=== PATIENT | male | born 1950 | race Caucasian/White ===

== ENCOUNTER → 2016-11-17 | Outpatient (CLI) | payer MEDICARE, OTHER ==
[~2016-11-17] MED LIST: ALBU17IN INH; FURO20TA2 PO; HYDR200T3 PO; KEPP1TAB2 PO; LACT10SO29 PO; LEVO88TA3 PO; NADO20TA PO; PANT40TA2 PO; PRED5TA PO; SIME80TA PO; SPIR50TA2 PO; VITA400T PO; XIFA550T PO
--- NOTE | 2016-11-17 16:52 | REP ---
MRI study of the abdomen without and with IV contrast: History: Hepatic failure. History of cirrhosis. Follow-up MRI study March 31, 2016. Prior studies show multiple pancreatic head and tail region cysts along with the evidence of cirrhosis and ascites. Technique: Axial and coronal imaging planes are utilized. T1 and T2-weighted sequences include true FISP, spin echo, in and out of phase, 2D gradient echo fat sat post gadolinium enhanced images. MRI findings: There is moderate upper abdominal diffuse ascites. The right hepatic lobe is diminutive and the left is relatively larger. The liver contour is finely irregular as before consistent with cirrhosis. Remains mildly enlarged, unchanged. No focal hepatic mass lesion is seen. There is a 16 mm cystic area in the pancreatic tail with some adjacent smaller tiny acinar cysts. There are one or two similar tiny cysts in the head and body of the pancreas, which are unchanged. No abnormal contrast enhancement in any of these small pancreatic cysts. Delayed patchy enhancement of the liver parenchyma is seen with numerous tiny low T1, low T2 signal intensity micronodules throughout the liver. This is again felt to be consistent with regenerative liver nodularity. No hypermetabolic lesion is seen in the liver. Impression: Evidence of cirrhosis with moderate ascites. Mild splenomegaly. No focal liver lesion seen. Multiple stable small cystic areas in the pancreas. Signed by Ap Deutsch MD 11/18/2016 05:06 P
== END ==
LOC: M PLARAD 13:15
PROVIDERS: ATTEND Internal Medicine Gastroenterology
DX: K72.90 Hepatic failure, unspecified without coma (principal); K76.0 Fatty (change of) liver, not elsewhere classified; I95.89 Other hypotension; K74.60 Unspecified cirrhosis of liver; R18.8 Other ascites; R16.1 Splenomegaly, not elsewhere classified; K86.2 Cyst of pancreas
CPT/HCPCS: 74183; A9576

== ENCOUNTER → 2016-11-21 | Outpatient (REF) | payer MEDICARE, OTHER ==
[2016-11-21 20:55] LABS: ADD MORPHOLOGY? YES; BASO # 0.1 K/mm3 (0.0-0.2); BASO % 1.3 % (0.0-1.0); EOS # 0.3 K/mm3 (0.0-0.50); EOS % 3.9 % (0.0-3.0); LARGE UNSTAINED CELL # 0.2 K/mm3 (0.0-0.4); LARGE UNSTAINED CELL % 2.2 % (0.0-4.0); LYMPH % 26.8 % (24.0-44.0); MEAN CORPUSCULAR HEMOGLOBIN 37.4 pg (27.0-33.0); MEAN CORPUSCULAR HGB CONC 33.4 g/dl (32.0-36.5); MEAN CORPUSCULAR VOLUME 111.9 fl (80.0-96.0); MONO # 0.7 K/mm3 (0.0-0.8); MONO % 10.4 % (0.0-5.0); NEUTROPHILS # 3.9 K/mm3 (1.8-7.7); NEUTROPHILS % 55.5 % (36.0-66.0); PLATELET COUNT, AUTOMATED 102 k/mm3 (150-450); RED CELL DISTRIBUTION WIDTH 14.5 % (11.5-14.5)
[2016-11-21 22:11] LABS: ERYTHROCYTE SEDIMENTATION RATE 32 mm/hr (0-20)
== END ==
LOC: M LAB REF 09:50
PROVIDERS: ATTEND Internal Medicine Rheumatology
DX: M35.9 Systemic involvement of connective tissue, unspecified (principal)

== ENCOUNTER → 2016-11-21 | Outpatient (REF) | payer MEDICARE, OTHER | LOC: M SFHCCLAY 11:15 | PROVIDERS: ATTEND Nurse Practitioner Family | DX: E78.5 Hyperlipidemia, unspecified (principal); E03.9 Hypothyroidism, unspecified; E55.9 Vitamin D deficiency, unspecified ==

== ENCOUNTER → 2016-12-15 | Outpatient (REF) | payer MEDICARE, OTHER ==
[2016-12-15 11:55] LABS: INR 1.5
[2016-12-15 11:57] LABS: MEAN CORPUSCULAR HEMOGLOBIN 37.5 pg (27.0-33.0); MEAN CORPUSCULAR HGB CONC 34.4 g/dl (32.0-36.5); MEAN CORPUSCULAR VOLUME 109.1 fl (80.0-96.0); RED CELL DISTRIBUTION WIDTH 14.3 % (11.5-14.5); WHITE BLOOD COUNT 8.4 K/mm3 (4.0-10.0)
[2016-12-15 12:25] LABS: ANION GAP 8 MEQ/L (8-16); BLOOD UREA NITROGEN 11 MG/DL (7-18); CALCIUM LEVEL 8.2 MG/DL (8.8-10.2); CARBON DIOXIDE LEVEL 22 MEQ/L (21-32); CHLORIDE LEVEL 107 MEQ/L (98-107); CREATININE FOR GFR 0.93 MG/DL (0.70-1.30); GLOMERULAR FILTRATION RATE > 60.0 (>49); GLUCOSE, FASTING 112 MG/DL (80-110); POTASSIUM SERUM 4.2 MEQ/L (3.5-5.1); SODIUM LEVEL 137 MEQ/L (136-145)
== END ==
LOC: M LABDRAWC 11:26
PROVIDERS: ATTEND Dentist
DX: K74.60 Unspecified cirrhosis of liver (principal)

== ENCOUNTER → 2017-04-07 | Outpatient (REF) | payer MEDICARE, OTHER ==
[~2017-04-07] MED LIST changes: +LACT10SO3 PO; +LEVO50TA45 PO; +LEVO75TA4 PO; +MIDO2.5T PO; +OMEP20CA3 PO; +VITA1CAP40 PO; +VITA200016 PO
== END ==
LOC: M SFHCCLAY 11:41
PROVIDERS: ATTEND Nurse Practitioner Family
DX: E03.9 Hypothyroidism, unspecified (principal); K75.4 Autoimmune hepatitis

== ENCOUNTER 2017-04-08 11:29 | Inpatient (IN) | payer MEDICARE, OTHER ==
[~2017-04-08] VITALS: Ht 182.9 cm; Wt 92.8 kg
[~2017-04-08 11:29] MED LIST changes: -LACT10SO3 PO; -LEVO50TA45 PO; -LEVO75TA4 PO; -MIDO2.5T PO; -OMEP20CA3 PO; -VITA1CAP40 PO; -VITA200016 PO
[2017-04-08] MEDS ORDERED: MIDO2.5T PO (11:41)
[2017-04-08] MEDS ORDERED: VITA200016 PO (11:41)
[2017-04-08] MEDS ORDERED: LEVO75TA4 PO (11:41)
[2017-04-08] MEDS: OMEPRAZOLE 20 MG CAP PO SCH (12:00)
[2017-04-08 12:41] LABS: BASO # 0.1 10^3/uL (0.0-0.2); BASO % 1.6 % (0.0-1.0); EOS # 0.2 10^3/uL (0.0-0.50); EOS % 2.5 % (0.0-3.0); IMMATURE GRANULOCYTE % 0.4 % (0-0); LYMPH % 23.5 % (24.0-44.0); MEAN CORPUSCULAR HEMOGLOBIN 37.5 pg (27.0-33.0); MEAN CORPUSCULAR HGB CONC 35.6 g/dl (32.0-36.5); MONO # 1.3 10^3/uL (0.0-0.8); MONO % 14.9 % (0.0-5.0); NEUTROPHILS # 4.9 10^3/uL (1.8-7.7); NEUTROPHILS % 57.1 % (36.0-66.0); PLATELET COUNT, AUTOMATED 113 10^3/uL (150-450); RED CELL DISTRIBUTION WIDTH 15.3 % (11.5-14.5); WHITE BLOOD COUNT 8.5 10^3/uL (4.0-10.0)
[2017-04-08 12:51] LABS: MEAN CORPUSCULAR VOLUME 105.4 fl (80.0-96.0)
[2017-04-08 12:52] LABS: ADD MORPHOLOGY? YES
[2017-04-08 13:08] LABS: ALBUMIN 2.3 GM/DL (3.2-5.2); ALBUMIN/GLOBULIN RATIO 0.59 (1.00-1.93); ALKALINE PHOSPHATASE 152 U/L (45-117); ALT/SGPT 67 U/L (12-78); ANION GAP 9 MEQ/L (8-16); AST/SGOT 65 U/L (15-37); BILIRUBIN,TOTAL 3.1 MG/DL (0.2-1.0); BLOOD UREA NITROGEN 13 MG/DL (7-18); CALCIUM LEVEL 8.5 MG/DL (8.8-10.2); CARBON DIOXIDE LEVEL 22 MEQ/L (21-32); CHLORIDE LEVEL 105 MEQ/L (98-107); CREATININE FOR GFR 0.91 MG/DL (0.70-1.30); GLOMERULAR FILTRATION RATE > 60.0 (>49); GLUCOSE, FASTING 158 MG/DL (80-110); SODIUM LEVEL 136 MEQ/L (136-145); TOTAL PROTEIN 6.2 GM/DL (6.4-8.2)
[2017-04-08 13:29] LABS: ANISOCYTOSIS 1+
--- NOTE | 2017-04-08 15:07 | HPEPDOC ---
[facility] Medical History & Physical Date of Admission Apr 08, 2017 History and Physical ATTENDING: Dr. Gilliam PCP: Alejandra Storm NP Manipulator Operator. Dr Robin Warren Rust Science And Operations Officer Dr Lyons Rust Applications Intern. Dr Espitia CC: confusion and elevated ammonia level. HPI: 66yoM with a past medical history significant for cirrhosis and autoimmune hepatitis. states on/off confusion past 2 weeks and ammonia level was noted to be 246 yesterday when checked by PCP. Reported here for further evaluation. The patient's provides most of the history. The patient is feeling fatigued and weak. She states that he was doing well over the summer until approximately 4 weeks ago when the frequency of his bowel movements decreased and he noticed some gas. They spoke with his percussion instrument repairer and Prilosec was added which was helpful. He was still having constipation and his lactulose was adjusted however he was still experiencing constipation and he was still adjusting lactulose. She states they noticed on March 26 increasing confusion which has been fluctuating since then. He most recently adjusted Lactulose to 10ml QID as per med list but he has still had confusion and weakness. The noted he tripped on a stair leaving the PCP office yesterday. Denies fall or injury. He denies any nausea, vomiting, hematemesis, melena or hematochezia. Denies abdominal pain. Has noticed some mild bloating today. Denies any fevers, chills, PRESLEY, CP, SOB, cough, palpitations, bladder habits. Upon presentation to the hospital the patient was found to have hepatic encephalopathy, thus the hospitalist team was consulted. PMHx: 1. DEGENERATIVE MUSCLE DISEASE 2. HYPOTHYROIDISM 3. AUTOIMMUNE HEPATITIS 4. CIRRHOSIS/hepatic encephalopathy 5. COPD 6. GERD 7. History of hypotension PAST SURGICAL HISTORY: 1. CATARACT SURGERY SOCHX: Resides in: [facility] Marital Status: Kids: 1 Tobacco use: 1/2ppd ETOH: denies Illicit Drugs: Denies Advanced directives: None FAMHX: Mother: Father: Siblings: 3 brothers, 3 sisters Alive, Lupus Children: Alive, well Unexpected deaths due to medical reasons: None. ROS: As noted in HPI, otherwise 11pt ROS of systems reviewed and unremarkable. Patient states he has been compliant with all this medications. PE: GEN: 66 yo M, appears stated age. Ill-appearing. No acute distress. Alert and oriented x 3. Pleasant. HEENT: Normocephalic, atraumatic. Pupils are equal, round, and reactive to light. Extraocular movements are intact. No nystagmus appreciated. Sclera are nonicteric. Conjunctiva without injection. Nose midline. Nasal turbinates without bogginess. EACs both patent BL. TMs both visualized and andrea with good cone of light, no bulging or erythema. No facial asymmetry. Moist mucous membranes. Dentition poor. Pharynx pink and moist, no cobblestoning. Neck supple , trachea midline. No lymphadenopathy or thyromegaly appreciated. CHEST: Regular rate and rhythm, +S1, +S2 LUNGS: Clear to auscultation bilaterally. No wheezes, rales, or rhonchi. Breathing appears symmetric and easy. Patient is speaking in full sentences. No accessory muscle use. ABD: Round, soft, non-tender, non-distended. +Bowel sounds throughout. No rebound or guarding. No costovertebral angle tenderness. EXT: Pulses 2+ bilaterally dorsalis pedis and radial. Trace lower extremity edema appreciated. SKIN: Ammon, dry, warm. Capillary refill <2sec. No rashes. NEURO: Alert and oriented x 3. Cranial nerves III-XII are intact. No focal deficits appreciated. INR 1.50 Ammonia 166 A&P: 66yoM with a past medical history significant for cirrhosis and autoimmune hepatitis. states on/off confusion past 2 weeks and ammonia level was noted to be 246 yesterday when checked by PCP. Reported here for further evaluation. 1. The patient will be admitted to PCU for at least [address] Gilliam' s service. Patient is discussed with Dr Issa. 2. Hepatic encephalopathy. Will adjust lactulose 15 mL 4 times a day titrate for 4-5 bowel movements per day. Monitor ammonia level. 3. Autoimmune hepatitis/cirrhosis. Continue hydroxychloroquine 200 mg by mouth twice a day. Prednisone 5 mg by mouth twice a day. Xifaxan 500 mg by mouth twice a day. Aldactone 50 mg by mouth daily. Nadolol 20 mg by mouth daily. 4. History of hypotension. Continue with Midodrine as per outpt dosing. 5. GERD. Continue Prilosec daily. 6. COPD. Continue albuterol HFA 2 puffs every 4 hours as needed. 7. Hypothyroid. Continue supplement. TSH is noted within normal limits. DVT prophylaxis. The patient is a full code. MED REC IS PENDING AT THIS TIME Vital Signs Vital Signs Date Time Temp Pulse Resp B/P (MAP) Pulse Ox O2 Delivery O2 Flow Rate FiO2 04/08/17 14:14 60 04/08/17 14:09 91/54 (66) 04/08/17 13:14 94 04/08/17 12:29 Room Air 04/08/17 11:30 97.2 18 Laboratory Data Labs 24H Laboratory Tests 2 04/08/17 12:07: Immature Granulocyte % (Auto) 0.4H, White Blood Count 8.5, Red Blood Count 3.92L , Hemoglobin 14.7, Hematocrit 41.3L, Mean Corpuscular Volume 105.4H, Mean Corpuscular Hemoglobin 37.5H, Mean Corpuscular Hemoglobin Concent 35.6, Red Cell Distribution Width 15.3H, Platelet Count 113L, Neutrophils (%) (Auto) 57.1 , Lymphocytes (%) (Auto) 23.5L, Monocytes (%) (Auto) 14.9H, Eosinophils (%) ( Auto) 2.5, Basophils (%) (Auto) 1.6H, Neutrophils # (Auto) 4.9, Lymphocytes # ( Auto) 2.0, Monocytes # (Auto) 1.3H, Eosinophils # (Auto) 0.2, Basophils # (Auto ) 0.1, Immature Granulocyte # (Auto) 0.0, Nucleated Red Blood Cells % (auto) 0.0 , Platelet Estimate NORMAL, Anisocytosis 1+, Anion Gap 9, Glomerular Filtration Rate > 60.0, Calcium Level 8.5L, Aspartate Amino Transf (AST/SGOT) 65H, Alanine Aminotransferase (ALT/SGPT) 67, Alkaline Phosphatase 152H, Total Bilirubin 3.1H , Direct Bilirubin 1.0H, Total Protein 6.2L, Albumin 2.3L, Albumin/Globulin Ratio 0.59L, Thyroid Stimulating Hormone (TSH) 2.530 04/08/17 13:42: Ammonia 166H CBC/BMP Laboratory Tests 04/08/17 12:07 Red Blood Count 3.92 L, Mean Corpuscular Volume 105.4 H, Mean Corpuscular Hemoglobin 37.5 H, Mean Corpuscular Hemoglobin Concent 35.6, Red Cell Distribution Width 15.3 H, Neutrophils (%) (Auto) 57.1, Lymphocytes (%) (Auto) 23.5 L, Monocytes (%) (Auto) 14.9 H, Eosinophils (%) (Auto) 2.5, Basophils (%) ( Auto) 1.6 H, Neutrophils # (Auto) 4.9, Lymphocytes # (Auto) 2.0, Monocytes # ( Auto) 1.3 H, Eosinophils # (Auto) 0.2, Basophils # (Auto) 0.1 Home Medications Scheduled Ergocalciferol (Vitamin D) 50,000 Unit Cap, 50,000 UNIT PO QWEEK SATURDAYS Furosemide (Furosemide) 20 Mg Tab, 20 MG PO DAILY Hydroxychloroquine Sulfate (Hydroxychloroquine Sulfat) 200 Mg Tab, 200 MG PO DAILY Lactulose (Lactulose) 10 Gm/15 Ml Mita, 10 ML PO QID Levothyroxine Sodium (Levoxyl) 50 Mcg Tab, 50 MCG PO DAILY Midodrine (Midodrine HCl) 2.5 Mg Tab, 7.5 MG PO TID Nadolol (Nadolol) 20 Mg Tab, 20 MG PO QHS Omeprazole (Omeprazole) 20 Mg Cap, 20 MG PO DAILY TAKES AT NOON Prednisone (Prednisone) 5 Mg Tab, 5 MG PO DAILY Rifaximin (Xifaxan) 550 Mg Tab, 550 MG PO BID Spironolactone (Spironolactone) 50 Mg Tab, 50 MG PO DAILY Scheduled PRN Albuterol Sulfate (Ventolin Hfa) 200 Puff/8 Gm Aers, 2 PUFF INH QID PRN for SHORTNESS OF BREATH Allergies Coded Allergies: ENVIROMENTAL (Verified Allergy, Unknown, 02/13/14) Meme Milner Apr 08, 2017 15:07
[2017-04-08] MEDS ORDERED: LEVO50TA45 PO (15:36)
[2017-04-08] MEDS ORDERED: VITA1CAP40 PO (15:36)
[2017-04-08] MEDS ORDERED: OMEP20CA3 PO (15:36)
[2017-04-08] MEDS ORDERED: NADO20TA PO (15:36)
[2017-04-08] MEDS ORDERED: ALBUTEROL SULFATE 2.5 MG/0.5 ML INH NEB SOLN NEB PRN (16:00)
[2017-04-08] MEDS: MIDODRINE 2.5 MG TAB PO SCH (16:00)
[2017-04-08 19:00] VITALS: BP 115/67
[2017-04-08] MEDS: LACTULOSE 20 GM/30 ML SYRUP UD PO SCH ×2 (19:45→23:29)
[2017-04-08] MEDS ORDERED: SLF 3 ML SYR IV PRN (20:15)
[2017-04-08] MEDS: NADOLOL 20MG TABLET PO SCH (21:00)
[2017-04-08] MEDS: rifAXIMin 550 MG TAB (XIFAXAN) PO SCH (22:00)
[2017-04-08] MEDS: SLF 3 ML SYR IV SCH (22:01)
[2017-04-08 22:15] VITALS: BP 104/55
[2017-04-08 23:59] VITALS: BP 118/59
[2017-04-09] VITALS (7 sets, daily range): BP systolic 100–122; BP diastolic 54–65
[2017-04-09 05:44] LABS: BASO # 0.1 10^3/uL (0.0-0.2); BASO % 0.8 % (0.0-1.0); EOS # 0.2 10^3/uL (0.0-0.50); EOS % 1.7 % (0.0-3.0); IMMATURE GRANULOCYTE % 0.5 % (0-0); LYMPH # 2.3 10^3/uL (1.5-4.5); LYMPH % 25.7 % (24.0-44.0); MEAN CORPUSCULAR HEMOGLOBIN 37.8 pg (27.0-33.0); MEAN CORPUSCULAR HGB CONC 36.1 g/dl (32.0-36.5); MEAN CORPUSCULAR VOLUME 104.9 fl (80.0-96.0); MONO # 1.2 10^3/uL (0.0-0.8); MONO % 13.5 % (0.0-5.0); NEUTROPHILS # 5.1 10^3/uL (1.8-7.7); NEUTROPHILS % 57.8 % (36.0-66.0); PLATELET COUNT, AUTOMATED 100 10^3/uL (150-450); RED CELL DISTRIBUTION WIDTH 14.9 % (11.5-14.5); WHITE BLOOD COUNT 8.8 10^3/uL (4.0-10.0)
[2017-04-09 05:54] LABS: INR 1.37
[2017-04-09 06:15] LABS: ALBUMIN/GLOBULIN RATIO 0.54 (1.00-1.93); ALKALINE PHOSPHATASE 127 U/L (45-117); ALT/SGPT 56 U/L (12-78); ANION GAP 8 MEQ/L (8-16); AST/SGOT 52 U/L (15-37); BILIRUBIN,TOTAL 2.9 MG/DL (0.2-1.0); BLOOD UREA NITROGEN 12 MG/DL (7-18); CALCIUM LEVEL 8.8 MG/DL (8.8-10.2); CARBON DIOXIDE LEVEL 23 MEQ/L (21-32); CHLORIDE LEVEL 108 MEQ/L (98-107); CREATININE FOR GFR 0.83 MG/DL (0.70-1.30); GLOMERULAR FILTRATION RATE > 60.0 (>49); GLUCOSE, FASTING 79 MG/DL (80-110); SODIUM LEVEL 139 MEQ/L (136-145); TOTAL PROTEIN 5.7 GM/DL (6.4-8.2)
[2017-04-09] MEDS: SLF 3 ML SYR IV SCH ×3 (06:25→20:29)
[2017-04-09] MEDS: LEVOTHYROXINE 50MCG TABLET (0.05MG) PO SCH (06:25)
[2017-04-09] MEDS: MIDODRINE 2.5 MG TAB PO SCH ×3 (09:13→17:15)
[2017-04-09] MEDS: LACTULOSE 20 GM/30 ML SYRUP UD PO SCH ×4 (09:13→20:28)
[2017-04-09] MEDS: SPIRONOLACTONE 50 MG TAB PO SCH (09:13)
[2017-04-09] MEDS: predniSONE 5 MG TAB PO SCH (09:13)
[2017-04-09] MEDS: rifAXIMin 550 MG TAB (XIFAXAN) PO SCH ×2 (09:14→20:29)
[2017-04-09] MEDS: HYDROXYCHLOROQUINE 200 MG TAB PO SCH (09:14)
[2017-04-09] MEDS: FUROSEMIDE 20 MG TAB PO SCH (09:14)
--- NOTE | 2017-04-09 11:58 | IPNPDOC ---
Subjective Date Seen The patient was seen on 04/09/17. Subjective Chief Complaint/HPI The patient is a 66-year-old male admitted with a reason for visit of Hepatic Encephalopathy. Events since last encounter Improved mentation. Tolerating Lactulose 15 ml po qid Constitutional: Denies: Chills, Fever, Night Sweats ENT: Denies: Head Aches, Ear Pain, Dysphagia Pulmonary: Denies: Dyspnea, Cough Cardiovascular: Denies: Chest Pain, Palpitations, Orthopnea, Paroxysmal Noc. Dyspnea, Lt Headedness Gastrointestinal: Denies: Nausea, Vomiting, Abdominal Pain, Diarrhea, Constipation Genitourinary: Denies: Dysuria, Frequency, Incontinence, Retention Objective Physical Examination General Exam: Positive: Alert, No Acute Distress Neck Exam: Positive: Supple, Negative: JVD, thyromegaly Chest Exam: Positive: Clear to auscultation, Normal air movement Heart Exam: Positive: Rate Normal, Regular Rhythm, Normal S1, Normal S2, Negative: Murmurs, Rubs Abdomen Exam: Positive: Normal bowel sounds, Soft, Negative: Tenderness, Hepatospenomegaly Psych Exam: Positive: Mental status NL, Mood NL, Oriented x 3 Assessment /Plan Problems (1) Hepatic encephalopathy Status: Acute Problem Text: ammonia level coming down. Monitor. Continue current Lactulose dosing of 15 ml po qid. (2) Autoimmune hepatitis Status: Chronic Response to Treatment: Stable Problem Text: Follows with Dr. Kelvin Kelly at [facility] gastroenterology (3) COPD (chronic obstructive pulmonary disease) Status: Chronic Response to Treatment: Stable (4) GERD (gastroesophageal reflux disease) Status: Chronic Response to Treatment: Stable (5) Esophageal varices in cirrhosis Status: Chronic Response to Treatment: Stable (6) Raynaud disease Status: Chronic Response to Treatment: Stable (7) Hypothyroidism Status: Chronic Response to Treatment: Stable Plan/VTE VTE Prophylaxis Ordered?: No VTE Exclusion Pharmacological: Bleeding Risk VS, I&O, 24H, Fishbone Vital Signs/I&O Vital Signs Date Time Temp Pulse Resp B/P (MAP) Pulse Ox O2 Delivery O2 Flow Rate FiO2 04/09/17 08:00 98.4 78 18 101/59 (73) 92 Room Air I&O- Last 24 Hours up to 6 AM 04/10/17 06:00 Intake Total 360 ml Output Total 0 ml Balance 360 ml Laboratory Data 24H LABS Laboratory Tests 2 04/08/17 12:07: Immature Granulocyte % (Auto) 0.4H, White Blood Count 8.5, Red Blood Count 3.92L , Hemoglobin 14.7, Hematocrit 41.3L, Mean Corpuscular Volume 105.4H, Mean Corpuscular Hemoglobin 37.5H, Mean Corpuscular Hemoglobin Concent 35.6, Red Cell Distribution Width 15.3H, Platelet Count 113L, Neutrophils (%) (Auto) 57.1 , Lymphocytes (%) (Auto) 23.5L, Monocytes (%) (Auto) 14.9H, Eosinophils (%) ( Auto) 2.5, Basophils (%) (Auto) 1.6H, Neutrophils # (Auto) 4.9, Lymphocytes # ( Auto) 2.0, Monocytes # (Auto) 1.3H, Eosinophils # (Auto) 0.2, Basophils # (Auto ) 0.1, Immature Granulocyte # (Auto) 0.0, Nucleated Red Blood Cells % (auto) 0.0 , Platelet Estimate NORMAL, Anisocytosis 1+, Anion Gap 9, Glomerular Filtration Rate > 60.0, Calcium Level 8.5L, Aspartate Amino Transf (AST/SGOT) 65H, Alanine Aminotransferase (ALT/SGPT) 67, Alkaline Phosphatase 152H, Total Bilirubin 3.1H , Direct Bilirubin 1.0H, Total Protein 6.2L, Albumin 2.3L, Albumin/Globulin Ratio 0.59L, Thyroid Stimulating Hormone (TSH) 2.530 04/08/17 13:42: Ammonia 166H 04/09/17 05:21: Immature Granulocyte % (Auto) 0.5H, White Blood Count 8.8, Red Blood Count 3.49L , Hemoglobin 13.2L, Hematocrit 36.6L, Mean Corpuscular Volume 104.9H, Mean Corpuscular Hemoglobin 37.8H, Mean Corpuscular Hemoglobin Concent 36.1, Red Cell Distribution Width 14.9H, Platelet Count 100L, Neutrophils (%) (Auto) 57.8 , Lymphocytes (%) (Auto) 25.7, Monocytes (%) (Auto) 13.5H, Eosinophils (%) (Auto ) 1.7, Basophils (%) (Auto) 0.8, Neutrophils # (Auto) 5.1, Lymphocytes # (Auto) 2.3, Monocytes # (Auto) 1.2H, Eosinophils # (Auto) 0.2, Basophils # (Auto) 0.1, Immature Granulocyte # (Auto) 0.0, Nucleated Red Blood Cells % (auto) 0.0, Anion Gap 8, Glomerular Filtration Rate > 60.0, Calcium Level 8.8, Aspartate Amino Transf (AST/SGOT) 52H, Alanine Aminotransferase (ALT/SGPT) 56, Alkaline Phosphatase 127H, Total Bilirubin 2.9H, Total Protein 5.7L, Albumin 2.0L, Albumin/Globulin Ratio 0.54L, Ammonia 119H, Prothrombin Time 17.2H, Prothromb Time International Ratio 1.37, Blood Urea Nitrogen 12, Creatinine 0.83, Sodium Level 139, Potassium Level 4.0, Chloride Level 108H, Carbon Dioxide Level 23 CBC/BMP Laboratory Tests 04/08/17 12:07 Red Blood Count 3.92 L, Mean Corpuscular Volume 105.4 H, Mean Corpuscular Hemoglobin 37.5 H, Mean Corpuscular Hemoglobin Concent 35.6, Red Cell Distribution Width 15.3 H, Neutrophils (%) (Auto) 57.1, Lymphocytes (%) (Auto) 23.5 L, Monocytes (%) (Auto) 14.9 H, Eosinophils (%) (Auto) 2.5, Basophils (%) ( Auto) 1.6 H, Neutrophils # (Auto) 4.9, Lymphocytes # (Auto) 2.0, Monocytes # ( Auto) 1.3 H, Eosinophils # (Auto) 0.2, Basophils # (Auto) 0.1 04/09/17 05:21 Red Blood Count 3.49 L, Mean Corpuscular Volume 104.9 H, Mean Corpuscular Hemoglobin 37.8 H, Mean Corpuscular Hemoglobin Concent 36.1, Red Cell Distribution Width 14.9 H, Neutrophils (%) (Auto) 57.8, Lymphocytes (%) (Auto) 25.7, Monocytes (%) (Auto) 13.5 H, Eosinophils (%) (Auto) 1.7, Basophils (%) ( Auto) 0.8, Neutrophils # (Auto) 5.1, Lymphocytes # (Auto) 2.3, Monocytes # (Auto ) 1.2 H, Eosinophils # (Auto) 0.2, Basophils # (Auto) 0.1, Calcium Level 8.8, Aspartate Amino Transf (AST/SGOT) 52 H, Alanine Aminotransferase (ALT/SGPT) 56, Alkaline Phosphatase 127 H, Total Bilirubin 2.9 H, Total Protein 5.7 L, Albumin 2.0 L Ivis [facility] Apr 09, 2017 11:58
[2017-04-09] MEDS: OMEPRAZOLE 20 MG CAP PO SCH (12:07)
--- NOTE | 2017-04-09 17:02 | REP ---
Abdominal right upper quadrant ultrasound: The patient has history of cirrhosis and ascites. There is a small volume of ascites in the right upper quadrant. There is no cholelithiasis. However, there is gallbladder wall thickening measuring up to the 6 mm, however, this is likely artifact from the ascites. There is no intrahepatic biliary duct dilatation. The common duct is obscured by bowel gas. The hepatic parenchyma is coarse and the liver is small in size. These findings are compatible with cirrhosis. The pancreas is obscured by bowel gas. The right kidney is normal size measuring 10.8 cm craniocaudad length. There is no right renal calculus, hydronephrosis, mass or cyst. Impression: Small volume of right upper quadrant ascites. Small sized liver with coarsened echotexture compatible with cirrhosis. There is no cholelithiasis. Gallbladder wall appears thickened, however this is likely artifact secondary to cirrhosis. Signed by Jose Singh MD 04/09/2017 04:54 P
[2017-04-09] MEDS: NADOLOL 20MG TABLET PO SCH (20:35)
[2017-04-10 04:00] VITALS: BP 125/58
[2017-04-10] MEDS: SLF 3 ML SYR IV SCH (06:00)
[2017-04-10] MEDS: LEVOTHYROXINE 50MCG TABLET (0.05MG) PO SCH (06:20)
[2017-04-10 06:23] LABS: BASO # 0.1 10^3/uL (0.0-0.2); BASO % 0.8 % (0.0-1.0); EOS # 0.2 10^3/uL (0.0-0.50); EOS % 2.1 % (0.0-3.0); IMMATURE GRANULOCYTE % 0.3 % (0-0); LYMPH # 2.4 10^3/uL (1.5-4.5); LYMPH % 24.5 % (24.0-44.0); MEAN CORPUSCULAR HEMOGLOBIN 37.5 pg (27.0-33.0); MEAN CORPUSCULAR HGB CONC 35.5 g/dl (32.0-36.5); MONO # 1.4 10^3/uL (0.0-0.8); MONO % 14.6 % (0.0-5.0); NEUTROPHILS # 5.5 10^3/uL (1.8-7.7); NEUTROPHILS % 57.7 % (36.0-66.0); RED CELL DISTRIBUTION WIDTH 15.2 % (11.5-14.5); WHITE BLOOD COUNT 9.6 10^3/uL (4.0-10.0)
[2017-04-10 06:35] LABS: ALBUMIN 1.9 GM/DL (3.2-5.2); ALBUMIN/GLOBULIN RATIO 0.53 (1.00-1.93); ALKALINE PHOSPHATASE 123 U/L (45-117); ALT/SGPT 56 U/L (12-78); ANION GAP 8 MEQ/L (8-16); AST/SGOT 57 U/L (15-37); BILIRUBIN,TOTAL 3.1 MG/DL (0.2-1.0); BLOOD UREA NITROGEN 12 MG/DL (7-18); CALCIUM LEVEL 8.6 MG/DL (8.8-10.2); CARBON DIOXIDE LEVEL 23 MEQ/L (21-32); CHLORIDE LEVEL 107 MEQ/L (98-107); GLOMERULAR FILTRATION RATE > 60.0 (>49); GLUCOSE, FASTING 87 MG/DL (80-110); MAGNESIUM LEVEL 1.7 MG/DL (1.8-2.4); SODIUM LEVEL 138 MEQ/L (136-145); TOTAL PROTEIN 5.5 GM/DL (6.4-8.2)
[2017-04-10 06:36] LABS: INR 1.54
[2017-04-10 07:04] LABS: ADD MORPHOLOGY? YES; MEAN CORPUSCULAR VOLUME 105.6 fl (80.0-96.0); PLATELET COUNT, AUTOMATED 92 10^3/uL (150-450)
[2017-04-10 07:08] LABS: IMMATURE PLATELET FRACTION % 2.9 % (0.0-10.9); PLATELET F 92
[2017-04-10 08:00] VITALS: BP 119/62
[2017-04-10] MEDS: MIDODRINE 2.5 MG TAB PO SCH ×2 (08:27→12:40)
[2017-04-10] MEDS: LACTULOSE 20 GM/30 ML SYRUP UD PO SCH ×2 (08:27→12:40)
[2017-04-10] MEDS: predniSONE 5 MG TAB PO SCH (08:28)
[2017-04-10] MEDS: rifAXIMin 550 MG TAB (XIFAXAN) PO SCH (08:28)
[2017-04-10] MEDS: HYDROXYCHLOROQUINE 200 MG TAB PO SCH (08:28)
[2017-04-10] MEDS: SPIRONOLACTONE 50 MG TAB PO SCH (08:28)
[2017-04-10] MEDS: FUROSEMIDE 20 MG TAB PO SCH (08:28)
[2017-04-10] MEDS ORDERED: LACT10SO3 PO (09:30)
[2017-04-10] MEDS ORDERED: MAG SULF 1GM/100ML (MAG RUN) 1 GM in APPROPRIATE DILUENT 1 EA IV ONE (09:45)
[2017-04-10 12:00] VITALS: BP 120/63
[2017-04-10] MEDS: OMEPRAZOLE 20 MG CAP PO SCH (12:40)
--- NOTE | 2017-04-10 15:27 | DSES ---
DATE OF ADMISSION: 04/08/2017 DATE OF DISCHARGE: 04/10/17 ATTENDING PHYSICIAN: Qian Walter DO PRIMARY CARE PROVIDER: Barbara Storm NP HISTORY OF PRESENT ILLNESS: 66-year-old gentleman with past medical history significant for cirrhosis and autoimmune hepatitis. Patient presented accompanied by his for a two week history of weakness and confusion. Patient was noted to have a significant ammonia level of 246 and patient reported to the ER for further evaluation. HOSPITAL COURSE: Patient was placed on high dose lactulose 15 mL by mouth four times a day, his ammonia level has subsequently come down well, most recent ammonia level 101. Patient's magnesium is slightly low at 1.7, otherwise electrolytes have remained stable. PHYSICAL EXAMINATION: Today vital signs are stable. He is afebrile. HEENT: Neck is supple without lymphadenopathy or jugular venous distention. CARDIOVASCULAR: Heart rate rhythm irregular. PULMONARY: Lungs clear. ABDOMEN: Soft, non-tender. NEURO: Patient is alert and oriented times three. PSYCHE: Affect is appropriate. Conversation is congruent. Patient maintains eye contact. ASSESSMENT DISCHARGE DIAGNOSES: 1. Hepatic encephalopathy. 2. Auto immune hepatitis. SECONDARY DIAGNOSES: 1. Degenerative muscle disease. 2. Hypothyroidism. 3. Chronic obstructive pulmonary disease. 4. Gastroesophageal reflux disease. 5. Hypertension secondary to diuresis from his auto immune hepatitis. PLAN: Patient will be discharged home. Diet is as tolerated. Activity is as tolerated. PRESCRIPTIONS: Include - Lactulose 15 mL by mouth four times a day - albuterol two puffs four times a day as needed shortness of breath - vitamin D 50,000 international units by mouth weekly - furosemide 20 mg by mouth daily - hydroxychloroquine 200 mg by mouth daily - levothyroxine 50 mcg by mouth daily - midodrine 2.5 mg tablet three by mouth three times a day - Nadolol 20 mg by mouth at bedtime - omeprazole 20 mg by mouth daily - prednisone 5 mg by mouth daily - rifaximin 550 mg by mouth twice a day - spironolactone 50 mg by mouth daily Patient will follow up with primary care provider within the next 5 days. He will follow up with his liver specialist within the next two weeks or return to the emergency room or primary care provider for worsening symptoms. The patient is discharged in stable satisfactory condition. We went over the questions at the time of discharge.
== END 2017-04-10 12:55 | disposition home or self-care (01) | DRG 433 ==
LOC: M ED 11:29 → M ED INP 15:58 → M PCU 18:57
PROVIDERS: ADMIT Internal Medicine; ATTEND Family Medicine
DX: K74.60 Unspecified cirrhosis of liver (principal); I85.10 Secondary esophageal varices without bleeding; K75.4 Autoimmune hepatitis; E03.9 Hypothyroidism, unspecified; I73.00 Raynaud's syndrome without gangrene; K72.90 Hepatic failure, unspecified without coma; J44.9 Chronic obstructive pulmonary disease, unspecified; K21.9 Gastro-esophageal reflux disease without esophagitis; F17.210 Nicotine dependence, cigarettes, uncomplicated; Z79.899 Other long term (current) drug therapy

== ENCOUNTER 2017-04-19 10:24 | Inpatient (IN) | payer MEDICARE, OTHER ==
[~2017-04-19] VITALS: Ht 182.9 cm; Wt 99.0 kg
[~2017-04-19 10:24] MED LIST changes: +LACT10SO3 PO; +LEVO50TA45 PO; +LEVO75TA4 PO; +MIDO2.5T PO; +OMEP20CA3 PO; +VITA1CAP40 PO; +VITA200016 PO
[2017-04-19] MEDS: NS 1,000 ML IV SCH (10:40)
--- NOTE | 2017-04-19 11:07 | REP ---
Portable chest, 10:49 a.m., single AP view, patient sitting: Comparison is 03/17/2016. There is coarsening of the interstitial markings that is slightly increased from the prior study and slightly indistinct. Could represent interval mild interstitial infiltrates or could be artifact from incomplete inspiratory effort as a consequence of the patient sitting. Cardiac size is normal. No pleural effusions. The wale, mediastinum, bony thorax unremarkable. Impression: Slightly increased interstitial coarsening as discussed. Otherwise, negative portable chest. Signed by Jose Singh MD 04/19/2017 10:57 A
[2017-04-19 11:16] LABS: ABG BASE EXCESS -1.8 (-2.0-2.0); ABG HCO3 19.8 MEQ/L (22.0-26.0); ABG PARTIAL PRESSURE CO2 26.3 mmHg (35.0-45.0); ABG PARTIAL PRESSURE O2 57.8 mmHg (75.0-100.0); ABG STANDARD HCO3 22.8 MEQ/L (22.0-26.0); ABG TOTAL CO2 20.6 MEQ/L (23.0-31.0); ABG pH (ARTERIAL) 7.495 UNITS (7.350-7.450)
[2017-04-19 11:30] LABS: BASO # 0.1 10^3/uL (0.0-0.2); BASO % 0.7 % (0.0-1.0); EOS # 0.2 10^3/uL (0.0-0.50); EOS % 2.4 % (0.0-3.0); IMMATURE GRANULOCYTE % 0.9 % (0-0); LYMPH # 2.3 10^3/uL (1.5-4.5); MEAN CORPUSCULAR HEMOGLOBIN 37.2 pg (27.0-33.0); MONO # 1.2 10^3/uL (0.0-0.8); MONO % 12.3 % (0.0-5.0); NEUTROPHILS # 5.6 10^3/uL (1.8-7.7); NEUTROPHILS % 59.7 % (36.0-66.0); PLATELET COUNT, AUTOMATED 133 10^3/uL (150-450); RED CELL DISTRIBUTION WIDTH 15.6 % (11.5-14.5); WHITE BLOOD COUNT 9.4 10^3/uL (4.0-10.0)
[2017-04-19 11:31] LABS: MEAN CORPUSCULAR VOLUME 106.4 fl (80.0-96.0); POSITIVE MORPH POS FLAG
[2017-04-19 11:32] LABS: ADD MORPHOLOGY? YES; VENOUS O2 SATURATION 67.5 % (60.0-80.0); VENOUS PARTIAL PRESSURE O2 35.2 mmHg (30.0-50.0); VENOUS STANDARD HCO3 22.1 MEQ/L; VENOUS TOTAL CO2 23.2 MEQ/L (24.0-28.0)
[2017-04-19 12:03] LABS: OSMOLALITY SERUM 287 MOSM/KG (280-301)
[2017-04-19 12:07] LABS: ALBUMIN 2.1 GM/DL (3.2-5.2); ALBUMIN/GLOBULIN RATIO 0.51 (1.00-1.93); ALKALINE PHOSPHATASE 196 U/L (45-117); ALT/SGPT 79 U/L (12-78); ANION GAP 8 MEQ/L (8-16); AST/SGOT 78 U/L (15-37); BILIRUBIN,DIRECT 0.9 MG/DL (0.0-0.2); BILIRUBIN,TOTAL 2.3 MG/DL (0.2-1.0); BLOOD UREA NITROGEN 14 MG/DL (7-18); CALCIUM LEVEL 8.5 MG/DL (8.8-10.2); CARBON DIOXIDE LEVEL 24 MEQ/L (21-32); CHLORIDE LEVEL 108 MEQ/L (98-107); CREATININE FOR GFR 0.98 MG/DL (0.70-1.30); GLOMERULAR FILTRATION RATE > 60.0 (>49); GLUCOSE, FASTING 94 MG/DL (80-110); MAGNESIUM LEVEL 1.9 MG/DL (1.8-2.4); POTASSIUM SERUM 4.3 MEQ/L (3.5-5.1); SODIUM LEVEL 140 MEQ/L (136-145); TOTAL PROTEIN 6.2 GM/DL (6.4-8.2)
[2017-04-19] MEDS ORDERED: LACT10SO29 PO (12:44)
[2017-04-19] MEDS ORDERED: ALBUTEROL SULFATE 2.5 MG/0.5 ML INH NEB SOLN NEB PRN (14:30)
[2017-04-19] MEDS ORDERED: ONDANSETRON 4MG/2ML VIAL (J2405) IV PRN (14:30)
--- NOTE | 2017-04-19 14:49 | REP ---
CT of the chest without IV contrast: The the patient is uncooperative unable to follow instructions. Significant motion artifact degrades the images. There is a small left pleural effusion. No focal infiltrates are identified. There are no masses. No gross evidence of adenopathy. The unenhanced thoracic aorta is unremarkable. Cardiac size is normal. In the visualized upper abdomen there appears to be a large volume of ascites. Impression: Small left pleural effusion. Large volume of ascites in the visualized upper abdomen. Signed by Jose Singh MD 04/19/2017 01:41 P
--- NOTE | 2017-04-19 15:02 | REP ---
CT of the brain without IV contrast: There are no comparisons. There is a low density subdural hygroma along the superior right convexity measuring 9 mm in depth. There is no midline shift. There is no hemorrhage. The cortical stripe is unremarkable. Ventricles are normal size and midline. The visualized paranasal sinuses and mastoid air cells are clear. Impression: Low density subdural hygroma along the right convexity superiorly. No hemorrhage, edema, mass effect or shift. No acute infarct. Signed by Jose Singh MD 04/19/2017 02:53 P
--- NOTE | 2017-04-19 15:04 | HPEPDOC ---
[facility] Medical History & Physical Date of Admission Apr 19, 2017 Attending Physician: Doi Huerta MD History and Physical PRIMARY CARE PROVIDER: Dr. Flower CHIEF COMPLAINT: Altered mental status HISTORY OF PRESENT ILLNESS: Obtained from patient's Patient is a 66-year-old male with known history of autoimmune hepatitis, recent hospitalization between 04/08/17 and 04/10/17. He presented today due to altered mental status, decreased level of alertness. His states that since discharge on 04/10 he has had a overall decreased lack of energy, on and off confusion, but was able to take medication, was functional in daily living. His states that today all he wanted to do is sleep, did not want to take any of his medication (which he was taking up until this morning). Due to his decreased level of alertness he was brought in to emergency department for further evaluation. His denies him having any abdominal pain, nausea, vomiting, chest pain/pressure. She reports that he does have some shortness of breath but states that he is at his baseline. ALLERGIES: Environmental PAST MEDICAL HISTORY: Autoimmune hepatitis Liver cirrhosis Degenerative muscle disease Hypothyroidism GERD Hypertension PAST SURGICAL HISTORY: Cataract SOCIAL HISTORY: Patient resides in [place], is . He smokes approximately 3-4 cigarettes per day. He does not have any history of alcohol, illicit drug use. CODE STATUS: Full code REVIEW OF SYSTEMS: Obtained from patient's Constitutional: Denies fevers, chills, sweats HEENT: Head: Denies headaches, dizziness. Eyes: Denies vision changes. Nose: Denies congestion. Throat: denies sore throat, cough, difficulty swallowing Cardiovascular: denies chest discomfort/pain, palpitations Respiratory: Positive for shortness of breath which is at patient's baseline Gastrointestinal: Denies abdominal pain, nausea, vomiting : denies dysuria, hematuria Musculoskeletal: Positive for chronic knee pain Neurological: denies numbness, tingling, paresthesias Integumentary: Denies any new cuts, rashes or abrasions PHYSICAL EXAMINATION: Vitals: Temperature 98.3, pulse 72, respiratory rate 16, blood pressure 108/72, pulse ox 97% on 2 L nasal cannula General: Patient is sleeping and stretcher, somewhat somnolent, he is somewhat arousable to verbal and gentle tactile stimulation, able to answer simple questions. He does not appear to be in any acute distress HEENT: Head: normocephalic, atraumatic. Eyes: Unable to assess. Throat: Moist oral mucosa, unable to further assess due to patient cooperation Respiratory: clear to auscultation bilaterally with no wheezes, rales, or rhonchi. Cardiovascular: regular rate and rhythm, with no murmurs, rubs or gallops. Abdomen: soft, nontender, mildly distended, no hepatosplenomegaly appreciated. Bowel sounds present. Extremities: Unable to assess strength, mild pitting to mid wilkinson Neurological: Unable to assess Lymphatics: no palpable lymph nodes, swollen glands Vascular: Radial pulses palpable bilaterally LABORATORY DATA: CBC: White blood cells 9.4, hemoglobin and hematocrit 13.4/38.3, platelets 133 BMP: Sodium 140, potassium 3.4, chloride 108, carbon dioxide 24, BUN 14, creatinine 0.98, glucose 94, calcium 8.5, magnesium 1.9 A liver profile: Direct bilirubin 0.9, total bilirubin 2.3, AST 78, ALT 79, alkaline phosphatase 196 total protein 6.2, albumin 2.1 Ammonia 135 TSH 4.030 Lactic acid 1.5 ABG: PH 7.495, PCO2 26.3, PO2 57.8, bicarbonate 19.8, oxygen saturation 91% MICROBOIOLOGY: Blood cultures 2 pending ELECTROCARDIOGRAM: Sinus rhythm with irregularity at rate of 63 bpm RADIOLOGY: Chest x-ray: Slightly increased interstitial coarsening, otherwise negative Chest CT: Small left pleural effusion, large volume of ascites in upper abdomen Head CT: Low density subdural hydroma, no shift, no edema, no mass, no hemorrhage, no acute infarct ASSESSMENT: Patient is a 66-year-old male with altered mental status due to metabolic encephalopathy secondary to autoimmune hepatitis. PLAN: #1: Metabolic encephalopathy: Admit patient to PCU under care of Dr. Huerta. Due to his worsening mental status we'll increase his dose of lactulose to 20 mg 4 times a day. Regular diet. #2: Autoimmune hepatitis: Order placed for home dose of hydroxychloroquine at 200 mg daily, nadolol 20 mg by mouth daily at bedtime (hold for systolic blood pressure <100, heart rate <60), rifaximin 550 mg by mouth twice a day, Lasix 20 mg by mouth daily (hold for systolic blood pressure <100), spironolactone 50 mg by mouth daily (hold for systolic blood pressure <100) #3: Hypothyroidism: Order placed for home dose of Synthroid 50 mcg by mouth daily #4: GERD: Order placed for home dose of omeprazole 20 mg daily #5: Shortness of breath: Order placed for albuterol neb every 4 hours when necessary for shortness of breath DVT prophylaxis: Orders placed for mechanical prophylaxis Code Status: The patient is FULL CODE per his . Alternate decision-making: While in room with patient he identified his Odalis Calderon (phone #[phone]) as his healthcare proxy. We will ask PFS to assist them in filling out the legal papers when he is competent again. Disposition: I anticipate that he will be here 2-3 days. As soon as we are able to control his ammonia levels and the subsequent toxic metabolic encephalopathy he should be dischargeable. Family Medicine Attending Note: I was present on site to supervise Marian Orozco D.O. (PGY-3). We discussed the history and exam. I confirmed the jones elements during my [id number] encounter with the patient. We conferred on the assessment and plan; I agree with the note as documented. I believe that the reason Mr. Thompson is having a recurrent and hepatic encephalopathy is his recent decrease in bowel movements. I'm not sure why his bowel movements went from 4 down to 1 a day, but this is likely the reason why his ammonia level is rising. Anticipate the increased lactulose will help resolve the situation. 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 ) Home Medications Scheduled Ergocalciferol (Vitamin D) 50,000 Unit Cap, 50,000 UNIT PO QWEEK SATURDAYS Furosemide (Furosemide) 20 Mg Tab, 20 MG PO DAILY Hydroxychloroquine Sulfate (Hydroxychloroquine Sulfat) 200 Mg Tab, 200 MG PO DAILY Lactulose (Lactulose) 10 Gm/15 Ml Mita, 15 ML PO QID Levothyroxine Sodium (Levoxyl) 50 Mcg Tab, 50 MCG PO DAILY Midodrine (Midodrine HCl) 2.5 Mg Tab, 7.5 MG PO TID Nadolol (Nadolol) 20 Mg Tab, 20 MG PO QHS Omeprazole (Omeprazole) 20 Mg Cap, 20 MG PO DAILY TAKES AT NOON Prednisone (Prednisone) 5 Mg Tab, 5 MG PO DAILY Rifaximin (Xifaxan) 550 Mg Tab, 550 MG PO BID Spironolactone (Spironolactone) 50 Mg Tab, 50 MG PO DAILY Scheduled PRN Albuterol Sulfate (Ventolin Hfa) 200 Puff/8 Gm Aers, 2 PUFF INH QID PRN for SHORTNESS OF BREATH Allergies Coded Allergies: ENVIROMENTAL (Verified Allergy, Unknown, 02/13/14) MARIAN OROZCO DO Apr 19, 2017 3:04 pm Dio Huerta MD Apr 19, 2017 10:58 pm
[2017-04-19 16:00] VITALS: BP 122/69
[2017-04-19] MEDS: OMEPRAZOLE 20 MG CAP PO SCH (16:51)
[2017-04-19] MEDS: SPIRONOLACTONE 50 MG TAB PO SCH (16:51)
[2017-04-19] MEDS: predniSONE 5 MG TAB PO SCH (16:52)
[2017-04-19] MEDS: FUROSEMIDE 20 MG TAB PO SCH (16:52)
[2017-04-19] MEDS: LACTULOSE 20 GM/30 ML SYRUP UD PO SCH ×2 (16:52→21:57)
[2017-04-19] MEDS: MIDODRINE 2.5 MG TAB PO SCH (17:40)
[2017-04-19] MEDS: HYDROXYCHLOROQUINE 200 MG TAB PO SCH (17:40)
[2017-04-19 20:06] VITALS: BP 120/61
[2017-04-19] MEDS: NADOLOL 20MG TABLET PO SCH (21:54)
[2017-04-19] MEDS: rifAXIMin 550 MG TAB (XIFAXAN) PO SCH (21:54)
[2017-04-20 00:29] VITALS: BP 95/50
[2017-04-20] MEDS: NS 1,000 ML IV SCH (04:06)
[2017-04-20] MEDS: LEVOTHYROXINE 50MCG TABLET (0.05MG) PO SCH (05:04)
[2017-04-20 05:10] VITALS: BP 101/58
[2017-04-20 05:23] LABS: MEAN CORPUSCULAR HEMOGLOBIN 37.6 pg (27.0-33.0); MEAN CORPUSCULAR HGB CONC 35.2 g/dl (32.0-36.5); PLATELET COUNT, AUTOMATED 129 10^3/uL (150-450); RED CELL DISTRIBUTION WIDTH 15.7 % (11.5-14.5); WHITE BLOOD COUNT 9.2 10^3/uL (4.0-10.0)
[2017-04-20 05:25] LABS: MEAN CORPUSCULAR VOLUME 106.7 fl (80.0-96.0)
[2017-04-20 05:37] LABS: ANION GAP 9 MEQ/L (8-16); BLOOD UREA NITROGEN 16 MG/DL (7-18); CALCIUM LEVEL 8.1 MG/DL (8.8-10.2); CARBON DIOXIDE LEVEL 21 MEQ/L (21-32); CHLORIDE LEVEL 109 MEQ/L (98-107); CREATININE FOR GFR 0.94 MG/DL (0.70-1.30); GLOMERULAR FILTRATION RATE > 60.0 (>49); GLUCOSE, FASTING 70 MG/DL (80-110); POTASSIUM SERUM 4.8 MEQ/L (3.5-5.1); SODIUM LEVEL 139 MEQ/L (136-145)
[2017-04-20 08:00] VITALS: BP 113/64
--- NOTE | 2017-04-20 08:35 | IPNPDOC ---
Subjective Date Seen The patient was seen on 04/20/17. Subjective Chief Complaint/HPI The patient is a 66-year-old male admitted with a reason for visit of Autoimmune Hepatitis Hepatic Encephalopathy. Events since last encounter Denies c/o. + BM this am. + weakness upon activity: standing, walking. Constitutional: Denies: Chills, Fever, Night Sweats Skin: Denies: Rash, Lesions, Jaundice, Bruising, Itching, Dry, Breakdown, Nail Changes, Other Pulmonary: Denies: Dyspnea, Cough Cardiovascular: Denies: Chest Pain, Palpitations, Orthopnea, Paroxysmal Noc. Dyspnea, Lt Headedness Objective Physical Examination General Exam: Positive: Alert, No Acute Distress Neck Exam: Positive: Supple, Negative: JVD, thyromegaly Chest Exam: Positive: Clear to auscultation, Normal air movement Heart Exam: Positive: Rate Normal, Regular Rhythm, Normal S1, Normal S2, Negative: Murmurs, Rubs Telemetry: Positive: No significant arrhythmia Abdomen Exam: Positive: Normal bowel sounds, Soft, Negative: Tenderness, Hepatospenomegaly Extremity Exam: Positive: Edema (2+ to ankles bilateral) Assessment /Plan Problems (1) Hepatic encephalopathy Status: Acute Problem Specific Plan: Monitor Clinically Problem Text: ammonia level is 101 which appears to be baseline for patient. Continue Lactulose at 20 ml po qid. Monitor I/O and BMs. PT to eval patient. (2) Pleural effusion associated with hepatic disorder Problem Text: LEFT pleural effusion. Will add increased diuresis with Lasix 40 mg IV x 1. (3) Autoimmune hepatitis Status: Chronic Problem Text: Large amount of ascites on CT chest. Increased diuresis ordered. Continue outpatient regimen as ordered by compliance analyst: Dr. Kelly (4) COPD (chronic obstructive pulmonary disease) Status: Chronic (5) Hypothyroidism Status: Chronic (6) Atrial flutter Status: Chronic Problem Text: NSR. rate controlled. Not anticoagulated due to esophageal varices, risk of bleeding. (7) Raynaud disease Status: Chronic (8) GERD (gastroesophageal reflux disease) Status: Chronic (9) Esophageal varices in cirrhosis Status: Chronic Plan/VTE VTE Prophylaxis Ordered?: No VTE Exclusion Pharmacological: Bleeding Risk Plan Family Medicine Attending Note: Patient was seen and examined early this morning. I discussed his care with DEZ Ambrose and I agree with her note as documented. Patient was alert and oriented this morning. Per nursing, he refused his lactulose last night but took it during the day yesterday and he is taking it today. He still has not had any BMs. PT eval pending. (KES) VS, I&O, 24H, Fishbone Vital Signs/I&O Vital Signs Date Time Temp Pulse Resp B/P (MAP) Pulse Ox O2 Delivery O2 Flow Rate FiO2 04/20/17 05:10 97.4 71 18 101/58 (72) 90 Room Air 04/19/17 17:16 2.0 Laboratory Data 24H LABS Laboratory Tests 2 04/19/17 10:44: Immature Granulocyte % (Auto) 0.9H, White Blood Count 9.4, Red Blood Count 3.60L , Hemoglobin 13.4L, Hematocrit 38.3L, Mean Corpuscular Volume 106.4H, Mean Corpuscular Hemoglobin 37.2H, Mean Corpuscular Hemoglobin Concent 35.0, Red Cell Distribution Width 15.6H, Platelet Count 133L, Neutrophils (%) (Auto) 59.7 , Lymphocytes (%) (Auto) 24.0, Monocytes (%) (Auto) 12.3H, Eosinophils (%) (Auto ) 2.4, Basophils (%) (Auto) 0.7, Neutrophils # (Auto) 5.6, Lymphocytes # (Auto) 2.3, Monocytes # (Auto) 1.2H, Eosinophils # (Auto) 0.2, Basophils # (Auto) 0.1, Immature Granulocyte # (Auto) 0.1H, Nucleated Red Blood Cells % (auto) 0.0, Platelet Estimate DECREASED, Macrocytosis 1+, Blood Gas Bicarbonate Standard 22.1, Venous Blood pH 7.406, Venous Blood Partial Pressure CO2 36.0L, Venous Blood Partial Pressure O2 35.2, Venous Blood Total Carbon Dioxide 23.2L, Venous Blood HCO3 22.1L, Venous Blood Oxygen Saturation 67.5, Venous Blood Base Excess -2.0, Anion Gap 8, Glomerular Filtration Rate > 60.0, Osmolality 287, Lactic Acid Level 1.5, Calcium Level 8.5L, Magnesium Level 1.9, Aspartate Amino Transf (AST/SGOT) 78H, Alanine Aminotransferase (ALT/SGPT) 79H, Alkaline Phosphatase 196H, Total Bilirubin 2.3H, Direct Bilirubin 0.9H, Ammonia 135H, Total Creatine Kinase 76, Creatine Kinase MB 1.9, Creatine Kinase MB Relative Index 2.50, Troponin I < 0.02, Total Protein 6.2L, Albumin 2.1L, Albumin/Globulin Ratio 0.51L, Thyroid Stimulating Hormone (TSH) 4.030H 04/19/17 10:57: Blood Gas Bicarbonate Standard 22.8, Arterial Blood pH 7.495H, Arterial Blood Partial Pressure CO2 26.3L, Arterial Blood Partial Pressure O2 57.8L, Arterial Blood Total CO2 20.6L, Arterial Blood HCO3 19.8L, Arterial Blood Base Excess - 1.8, Arterial Blood Oxygen Saturation 91.0L 04/19/17 11:42: Bedside Glucose (Misc Panel) 91 04/20/17 05:03: Nucleated Red Blood Cells % (auto) 0.0, Anion Gap 9, Glomerular Filtration Rate > 60.0, Calcium Level 8.1L, Ammonia 110H, Blood Urea Nitrogen 16, Creatinine 0.94, Sodium Level 139, Potassium Level 4.8, Chloride Level 109H, Carbon Dioxide Level 21 CBC/BMP Laboratory Tests 04/19/17 10:44 Red Blood Count 3.60 L, Mean Corpuscular Volume 106.4 H, Mean Corpuscular Hemoglobin 37.2 H, Mean Corpuscular Hemoglobin Concent 35.0, Red Cell Distribution Width 15.6 H, Neutrophils (%) (Auto) 59.7, Lymphocytes (%) (Auto) 24.0, Monocytes (%) (Auto) 12.3 H, Eosinophils (%) (Auto) 2.4, Basophils (%) ( Auto) 0.7, Neutrophils # (Auto) 5.6, Lymphocytes # (Auto) 2.3, Monocytes # (Auto ) 1.2 H, Eosinophils # (Auto) 0.2, Basophils # (Auto) 0.1 04/20/17 05:03 Red Blood Count 3.43 L, Mean Corpuscular Volume 106.7 H, Mean Corpuscular Hemoglobin 37.6 H, Mean Corpuscular Hemoglobin Concent 35.2, Red Cell Distribution Width 15.7 H, Calcium Level 8.1 L Microbiology Microbiology 04/19/17 Blood Culture, Received Pending 04/19/17 Blood Culture, Received Pending Ivis El [facility] Apr 20, 2017 08:35 DORCAS COPELAND MD Apr 20, 2017 15:23
[2017-04-20] MEDS ORDERED: FUROSEMIDE 40 MG/4 ML VIAL (J1940) IV ONE (08:45)
[2017-04-20] MEDS: LACTULOSE 20 GM/30 ML SYRUP UD PO SCH ×4 (08:55→20:59)
[2017-04-20] MEDS: MIDODRINE 2.5 MG TAB PO SCH ×3 (08:56→16:15)
[2017-04-20] MEDS: predniSONE 5 MG TAB PO SCH (08:56)
[2017-04-20] MEDS: SPIRONOLACTONE 50 MG TAB PO SCH (08:56)
[2017-04-20] MEDS: OMEPRAZOLE 20 MG CAP PO SCH (08:56)
[2017-04-20] MEDS: FUROSEMIDE 20 MG TAB PO SCH (08:56)
[2017-04-20] MEDS: HYDROXYCHLOROQUINE 200 MG TAB PO SCH (08:56)
[2017-04-20] MEDS: rifAXIMin 550 MG TAB (XIFAXAN) PO SCH ×2 (08:56→20:59)
[2017-04-20 12:00] VITALS: BP 109/61
[2017-04-20 16:00] VITALS: BP 119/78
[2017-04-20 19:45] VITALS: BP 116/61
[2017-04-20] MEDS: NADOLOL 20MG TABLET PO SCH (21:00)
[2017-04-21] VITALS (7 sets, daily range): BP systolic 100–121; BP diastolic 54–63
[2017-04-21] MEDS ORDERED: SLF 3 ML SYR IV PRN (02:30)
[2017-04-21 05:26] LABS: MEAN CORPUSCULAR HEMOGLOBIN 37.9 pg (27.0-33.0); MEAN CORPUSCULAR HGB CONC 35.4 g/dl (32.0-36.5); PLATELET COUNT, AUTOMATED 124 10^3/uL (150-450); RED CELL DISTRIBUTION WIDTH 15.7 % (11.5-14.5); WHITE BLOOD COUNT 8.9 10^3/uL (4.0-10.0)
[2017-04-21 05:30] LABS: MEAN CORPUSCULAR VOLUME 107.2 fl (80.0-96.0)
[2017-04-21 05:45] LABS: ANION GAP 10 MEQ/L (8-16); BLOOD UREA NITROGEN 19 MG/DL (7-18); CALCIUM LEVEL 8.2 MG/DL (8.8-10.2); CARBON DIOXIDE LEVEL 23 MEQ/L (21-32); CHLORIDE LEVEL 107 MEQ/L (98-107); CREATININE FOR GFR 1.17 MG/DL (0.70-1.30); GLOMERULAR FILTRATION RATE > 60.0 (>49); GLUCOSE, FASTING 128 MG/DL (80-110); POTASSIUM SERUM 3.9 MEQ/L (3.5-5.1); SODIUM LEVEL 140 MEQ/L (136-145)
[2017-04-21] MEDS: LEVOTHYROXINE 50MCG TABLET (0.05MG) PO SCH (06:18)
[2017-04-21] MEDS: SLF 3 ML SYR IV SCH ×3 (06:19→20:31)
[2017-04-21] MEDS: rifAXIMin 550 MG TAB (XIFAXAN) PO SCH ×2 (08:10→20:30)
[2017-04-21] MEDS: LACTULOSE 20 GM/30 ML SYRUP UD PO SCH ×4 (08:10→20:31)
[2017-04-21] MEDS: FUROSEMIDE 20 MG TAB PO SCH (08:10)
[2017-04-21] MEDS: HYDROXYCHLOROQUINE 200 MG TAB PO SCH (08:10)
[2017-04-21] MEDS: MIDODRINE 2.5 MG TAB PO SCH ×3 (08:10→15:08)
[2017-04-21] MEDS: predniSONE 5 MG TAB PO SCH (08:10)
[2017-04-21] MEDS: OMEPRAZOLE 20 MG CAP PO SCH (08:10)
[2017-04-21] MEDS: SPIRONOLACTONE 50 MG TAB PO SCH (08:11)
--- NOTE | 2017-04-21 09:15 | IPNPDOC ---
Subjective Date Seen The patient was seen on 04/21/17. Subjective Chief Complaint/HPI The patient is a 66-year-old male admitted with a reason for visit of Autoimmune Hepatitis Hepatic Encephalopathy. Events since last encounter Denies c/o. continues with weakness with exertion. S/p 3 BMs since admission. Constitutional: Reports: Weakness, Denies: Chills, Fever, Night Sweats Pulmonary: Denies: Dyspnea, Cough Cardiovascular: Denies: Chest Pain, Palpitations, Orthopnea, Paroxysmal Noc. Dyspnea, Lt Headedness Gastrointestinal: Denies: Nausea, Vomiting, Abdominal Pain, Diarrhea, Constipation Objective Physical Examination General Exam: Positive: Alert, No Acute Distress Neck Exam: Positive: Supple, Negative: JVD, thyromegaly Chest Exam: Positive: Clear to auscultation, Normal air movement Heart Exam: Positive: Rate Normal, Regular Rhythm, Normal S1, Normal S2, Negative: Murmurs, Rubs Telemetry: Positive: No significant arrhythmia Abdomen Exam: Positive: Normal bowel sounds, Soft, Negative: Tenderness, Hepatospenomegaly Extremity Exam: Positive: Edema (2+ to ankles bilateral) Assessment /Plan Problems (1) Physical deconditioning Status: Acute Problem Text: 04/21/17 not safe per PT (2) Hepatic encephalopathy Status: Acute Problem Specific Plan: Monitor Clinically Problem Text: 04/21/17 NH3 127-baseline Continue Lactulose at 20 ml po qid. Monitor I/O and BMs. PT to eval patient. (3) Pleural effusion associated with hepatic disorder Problem Text: 04/21/17: f/u CXR ordered today LEFT pleural effusion. Will add increased diuresis with Lasix 40 mg IV x 1. (4) Autoimmune hepatitis Status: Chronic Problem Text: Large amount of ascites on CT chest. Increased diuresis ordered. Continue outpatient regimen as ordered by flat optical element maker: Dr. Kelly (5) COPD (chronic obstructive pulmonary disease) Status: Chronic (6) Hypothyroidism Status: Chronic (7) Atrial flutter Status: Chronic Problem Text: NSR. rate controlled. Not anticoagulated due to esophageal varices, risk of bleeding. (8) Raynaud disease Status: Chronic (9) GERD (gastroesophageal reflux disease) Status: Chronic (10) Esophageal varices in cirrhosis Status: Chronic Plan/VTE VTE Prophylaxis Ordered?: No VTE Exclusion Pharmacological: Bleeding Risk VS, I&O, 24H, Fishbone Vital Signs/I&O Vital Signs Date Time Temp Pulse Resp B/P (MAP) Pulse Ox O2 Delivery O2 Flow Rate FiO2 04/21/17 04:39 99.4 81 18 112/60 (77) 91 Room Air 04/19/17 17:16 2.0 I&O- Last 24 Hours up to 6 AM 04/22/17 06:00 Intake Total 120 ml Balance 120 ml Laboratory Data 24H LABS Laboratory Tests 2 04/21/17 05:09: Nucleated Red Blood Cells % (auto) 0.0, Anion Gap 10, Glomerular Filtration Rate > 60.0, Blood Urea Nitrogen 19H, Creatinine 1.17, Sodium Level 140, Potassium Level 3.9, Chloride Level 107, Carbon Dioxide Level 23, Calcium Level 8.2L, Ammonia 127H CBC/BMP Laboratory Tests 04/21/17 05:09 Red Blood Count 3.06 L, Mean Corpuscular Volume 107.2 H, Mean Corpuscular Hemoglobin 37.9 H, Mean Corpuscular Hemoglobin Concent 35.4, Red Cell Distribution Width 15.7 H, Calcium Level 8.2 L Microbiology Microbiology 04/19/17 Blood Culture - Preliminary, Resulted No growth after 24 hours . All specim... 04/19/17 Blood Culture - Preliminary, Resulted No growth after 24 hours . All specim... Ivis El Apr 21, 2017 09:15 Tk Bermudez M.D. Apr 21, 2017 16:02
--- NOTE | 2017-04-21 09:30 | ECGEPIP ---
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
--- NOTE | 2017-04-21 10:34 | REP ---
PA and lateral chest: Comparisons are the portable chest of 04/19/[address] of 04/19/2017. On the comparison chest CT there was a small left pleural effusion. This can be identified on the lateral view today. The right and left lateral costophrenic sinuses are open and sharp. Lung weinberg are clear. Cardiac size is normal. The wale, mediastinum, bony thorax are unremarkable. The mild interstitial coarsening identified on the comparison portable chest is no longer present. On the comparison CT there was a large volume of ascites in the upper abdomen. Impression: Small left pleural effusion. Otherwise, negative chest. Signed by Jose Singh MD 04/21/2017 10:26 A
[2017-04-21] MEDS: NADOLOL 20MG TABLET PO SCH (20:31)
[2017-04-22 04:35] VITALS: BP 101/55
[2017-04-22] MEDS: LEVOTHYROXINE 50MCG TABLET (0.05MG) PO SCH (05:12)
[2017-04-22] MEDS: SLF 3 ML SYR IV SCH ×3 (05:12→21:08)
[2017-04-22 05:32] LABS: MEAN CORPUSCULAR HGB CONC 35.1 g/dl (32.0-36.5); PLATELET COUNT, AUTOMATED 111 10^3/uL (150-450); RED CELL DISTRIBUTION WIDTH 15.8 % (11.5-14.5)
[2017-04-22 05:37] LABS: MEAN CORPUSCULAR VOLUME 108.1 fl (80.0-96.0)
[2017-04-22 05:56] LABS: ANION GAP 9 MEQ/L (8-16); BLOOD UREA NITROGEN 16 MG/DL (7-18); CALCIUM LEVEL 8.6 MG/DL (8.8-10.2); CARBON DIOXIDE LEVEL 23 MEQ/L (21-32); CHLORIDE LEVEL 108 MEQ/L (98-107); CREATININE FOR GFR 1.03 MG/DL (0.70-1.30); GLOMERULAR FILTRATION RATE > 60.0 (>49); GLUCOSE, FASTING 108 MG/DL (80-110); POTASSIUM SERUM 3.8 MEQ/L (3.5-5.1); SODIUM LEVEL 140 MEQ/L (136-145)
[2017-04-22 08:00] VITALS: BP 103/72
[2017-04-22] MEDS ORDERED: LACTULOSE 20 GM/30 ML SYRUP UD PO PRN (09:00)
[2017-04-22] MEDS: SPIRONOLACTONE 50 MG TAB PO SCH (09:01)
[2017-04-22] MEDS: MIDODRINE 2.5 MG TAB PO SCH ×3 (09:01→15:22)
[2017-04-22] MEDS: rifAXIMin 550 MG TAB (XIFAXAN) PO SCH ×2 (09:01→21:09)
[2017-04-22] MEDS: predniSONE 5 MG TAB PO SCH (09:02)
[2017-04-22] MEDS: FUROSEMIDE 20 MG TAB PO SCH (09:02)
[2017-04-22] MEDS: HYDROXYCHLOROQUINE 200 MG TAB PO SCH (09:02)
[2017-04-22] MEDS: OMEPRAZOLE 20 MG CAP PO SCH (09:02)
[2017-04-22 11:47] VITALS: BP 101/57
[2017-04-22] MEDS: LACTULOSE 20 GM/30 ML SYRUP UD PO SCH ×2 (12:18→17:25)
--- NOTE | 2017-04-22 12:55 | IPNPDOC ---
Subjective Date Seen The patient was seen on 04/22/17. Subjective Chief Complaint/HPI The patient is a 66-year-old male admitted with a reason for visit of Autoimmune Hepatitis Hepatic Encephalopathy. Events since last encounter no changes today Constitutional: Reports: Weakness, Fatigue, Lethargy ENT: Denies: Head Aches, Ear Pain, Dysphagia Skin: Denies: Rash, Lesions, Breakdown Pulmonary: Denies: Dyspnea, Cough Cardiovascular: Denies: Chest Pain, Palpitations, Orthopnea, Paroxysmal Noc. Dyspnea, Lt Headedness Objective Physical Examination General Exam: Positive: Alert, No Acute Distress Neck Exam: Positive: Supple, Negative: JVD, thyromegaly Chest Exam: Positive: Clear to auscultation, Normal air movement Heart Exam: Positive: Rate Normal, Regular Rhythm, Normal S1, Normal S2, Negative: Murmurs, Rubs Telemetry: Positive: No significant arrhythmia Abdomen Exam: Positive: Normal bowel sounds, Soft, Negative: Tenderness, Hepatospenomegaly Extremity Exam: Positive: Edema (2+ to ankles bilateral) Assessment /Plan Problems (1) Physical deconditioning Status: Acute Problem Text: 04/22/2017: PFS involved with DC Plan for 19/01 care due to patient's mentation. 04/21/17 not safe per PT (2) Hepatic encephalopathy Status: Acute Problem Specific Plan: Monitor Clinically Problem Text: 04/22/17: NH3 increased today to 156; patient is having <3 BMs per day; lactulose was increased to 30 ml Q6H. 04/21/17 NH3 127-baseline. Continue Lactulose at 20 ml po qid. Monitor I/O and BMs. PT to eval patient. (3) Pleural effusion associated with hepatic disorder Problem Text: F/u CXR showed stable left pleural effusion. Received lasix 40 mg IV x1 on first day of admission. No acute respiratory symptoms. (4) Autoimmune hepatitis Status: Chronic Problem Text: Large amount of ascites on CT chest. Continue outpatient regimen as ordered by machine maintenance supervisor: Dr. Kelly (5) COPD (chronic obstructive pulmonary disease) Status: Chronic (6) Hypothyroidism Status: Chronic (7) Atrial flutter Status: Chronic Problem Text: NSR. rate controlled. Not anticoagulated due to esophageal varices, risk of bleeding. 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 On Nadolol. Plan/VTE VTE Prophylaxis Ordered?: No VTE Exclusion Pharmacological: Bleeding Risk Plan Family Medicine Attending Note: I saw and examined Mr. Thompson this afternoon; he had no complaints and was alert and oriented. I discussed his care with DZE Ambrose and I agree with her note as documented. PFS will confirm patient's home care status (ie, whether he has 24/7 care at home as recommended by PT). I would like for him to have 3+ BMs consistently to keep ammonia down prior to discharge. (KES) VS, I&O, 24H, Fishbone Vital Signs/I&O Vital Signs Date Time Temp Pulse Resp B/P (MAP) Pulse Ox O2 Delivery O2 Flow Rate FiO2 04/22/17 11:47 97.8 76 16 101/57 (72) 96 Nasal Cannula 2.0 I&O- Last 24 Hours up to 6 AM 04/23/17 06:00 Intake Total 600 ml Output Total 150 ml Balance 450 ml Laboratory Data 24H LABS Laboratory Tests 2 04/22/17 05:11: Nucleated Red Blood Cells % (auto) 0.0, Anion Gap 9, Glomerular Filtration Rate > 60.0, Blood Urea Nitrogen 16, Creatinine 1.03, Sodium Level 140, Potassium Level 3.8, Chloride Level 108H, Carbon Dioxide Level 23, Calcium Level 8.6L, Ammonia 156H CBC/BMP Laboratory Tests 04/22/17 05:11 Red Blood Count 3.08 L, Mean Corpuscular Volume 108.1 H, Mean Corpuscular Hemoglobin 38.0 H, Mean Corpuscular Hemoglobin Concent 35.1, Red Cell Distribution Width 15.8 H, Calcium Level 8.6 L Microbiology Microbiology 04/19/17 Blood Culture - Preliminary, Resulted No Growth after 72 hours. All specime... 04/19/17 Blood Culture - Preliminary, Resulted No Growth after 72 hours. All specime... Ivis El Apr 22, 2017 12:55 DORCAS COPELAND MD Apr 22, 2017 14:24
[2017-04-22 15:10] VITALS: BP 131/75
[2017-04-22 20:00] VITALS: BP 119/60
[2017-04-22] MEDS: NADOLOL 20MG TABLET PO SCH (21:09)
[2017-04-23] MEDS: LACTULOSE 20 GM/30 ML SYRUP UD PO SCH ×4 (00:49→16:55)
[2017-04-23 04:00] VITALS: BP 103/69
[2017-04-23 05:45] LABS: MEAN CORPUSCULAR HEMOGLOBIN 37.3 pg (27.0-33.0); MEAN CORPUSCULAR HGB CONC 34.9 g/dl (32.0-36.5); PLATELET COUNT, AUTOMATED 125 10^3/uL (150-450); RED CELL DISTRIBUTION WIDTH 15.6 % (11.5-14.5); WHITE BLOOD COUNT 7.6 10^3/uL (4.0-10.0)
[2017-04-23 05:51] LABS: MEAN CORPUSCULAR VOLUME 106.9 fl (80.0-96.0)
[2017-04-23 06:02] LABS: ANION GAP 11 MEQ/L (8-16); BLOOD UREA NITROGEN 13 MG/DL (7-18); CALCIUM LEVEL 8.5 MG/DL (8.8-10.2); CARBON DIOXIDE LEVEL 22 MEQ/L (21-32); CHLORIDE LEVEL 108 MEQ/L (98-107); CREATININE FOR GFR 1.03 MG/DL (0.70-1.30); GLOMERULAR FILTRATION RATE > 60.0 (>49); GLUCOSE, FASTING 87 MG/DL (80-110); POTASSIUM SERUM 3.8 MEQ/L (3.5-5.1); SODIUM LEVEL 141 MEQ/L (136-145)
[2017-04-23] MEDS: LEVOTHYROXINE 50MCG TABLET (0.05MG) PO SCH (06:04)
[2017-04-23] MEDS: SLF 3 ML SYR IV SCH ×3 (06:06→21:52)
--- NOTE | 2017-04-23 07:56 | IPNPDOC ---
Subjective Date Seen The patient was seen on 04/23/17. Subjective Chief Complaint/HPI The patient is a 66-year-old male admitted with a reason for visit of Autoimmune Hepatitis Hepatic Encephalopathy. Events since last encounter Continues with weakness and intermittent confusion. Participating with PT. CXR shows smal LEFT pleural effusion, otherwise negative. Constitutional: Denies: Chills, Fever, Night Sweats ENT: Denies: Head Aches, Ear Pain, Dysphagia Skin: Denies: Rash, Lesions, Breakdown Pulmonary: Denies: Dyspnea, Cough Cardiovascular: Denies: Chest Pain, Palpitations, Orthopnea, Paroxysmal Noc. Dyspnea, Lt Headedness Gastrointestinal: Reports: Other Symptoms (ascites, denies abdominal pain) Objective Physical Examination General Exam: Positive: Alert, No Acute Distress Neck Exam: Positive: Supple, Negative: JVD, thyromegaly Chest Exam: Positive: Clear to auscultation, Normal air movement Heart Exam: Positive: Rate Normal, Regular Rhythm, Normal S1, Normal S2, Negative: Murmurs, Rubs Telemetry: Positive: No significant arrhythmia Abdomen Exam: Positive: Normal bowel sounds, Soft, Negative: Tenderness, Hepatospenomegaly Extremity Exam: Positive: Edema (2+ to ankles bilateral) Assessment /Plan Problems (1) Physical deconditioning Status: Acute Problem Text: 04/23/17: plan for DC home in am pending 's ability to provide 24/7 care. 04/22/2017: PFS involved with DC Plan for 24/7 care due to patient's mentation. 04/21/17 not safe per PT (2) Hepatic encephalopathy Status: Acute Problem Specific Plan: Monitor Clinically Problem Text: 04/22/17: Ammonia level 86 today. 3 BMS daily. monitor. Should go home on Lactulose 30 ml po q 6 hrs. Will need to f/u with Dr. Kelly, hepatology in [place]. 04/22/17: NH3 increased today to 156; patient is having <3 BMs per day; lactulose was increased to 30 ml Q6H. 04/21/17 NH3 127-baseline. Continue Lactulose at 20 ml po qid. Monitor I/O and BMs. PT to eval patient. (3) Pleural effusion associated with hepatic disorder Problem Text: 04/22/17: CXR with small pleural effusion, asymptomatic, lungs clear. Currently on Furosemide 20 mg po daily. F/u CXR showed stable left pleural effusion. Received lasix 40 mg IV x1 on first day of admission. No acute respiratory symptoms. (4) Autoimmune hepatitis Status: Chronic Problem Text: Large amount of ascites on CT chest. Continue outpatient regimen as ordered by margarine maker: Dr. Kelly (5) COPD (chronic obstructive pulmonary disease) Status: Chronic (6) Hypothyroidism Status: Chronic (7) Atrial flutter Status: Chronic Problem Text: NSR. rate controlled. Not anticoagulated due to esophageal varices, risk of bleeding. 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 On Nadolol. Plan/VTE VTE Prophylaxis Ordered?: No VTE Exclusion Pharmacological: Bleeding Risk Plan Family Medicine Attending Note: I saw and examined Mr. Thompson this afternoon and discussed his care with his . I discussed his case with DEZ Ambrose and I agree with her note as documented. At this point, I believe his mentation is at baseline and he is having 2-3 BMs per day. I discussed with his that if he stops having BMs over 24-48 hours, she needs to contact his doctor so that his lactulose can be adjusted. He still needs to be seen by PT today - plan is for discharge home tomorrow if he is found to be safe for discharge by PT. (KES) VS, I&O, 24H, Fishbone Vital Signs/I&O Vital Signs Date Time Temp Pulse Resp B/P (MAP) Pulse Ox O2 Delivery O2 Flow Rate FiO2 04/23/17 04:00 100.0 69 18 103/69 (80) 96 Room Air 04/22/17 15:10 2.0 Laboratory Data 24H LABS Laboratory Tests 2 04/23/17 05:19: Nucleated Red Blood Cells % (auto) 0.0, Anion Gap 11, Glomerular Filtration Rate > 60.0, Blood Urea Nitrogen 13, Creatinine 1.03, Sodium Level 141, Potassium Level 3.8, Chloride Level 108H, Carbon Dioxide Level 22, Calcium Level 8.5L, Ammonia 85H CBC/BMP Laboratory Tests 04/23/17 05:19 Red Blood Count 3.19 L, Mean Corpuscular Volume 106.9 H, Mean Corpuscular Hemoglobin 37.3 H, Mean Corpuscular Hemoglobin Concent 34.9, Red Cell Distribution Width 15.6 H, Calcium Level 8.5 L Microbiology Microbiology 04/19/17 Blood Culture - Preliminary, Resulted No Growth after 72 hours. All specime... 04/19/17 Blood Culture - Preliminary, Resulted No Growth after 72 hours. All specime... Ivis El Apr 23, 2017 07:56 DORCAS COPELAND MD Apr 23, 2017 15:10
[2017-04-23 08:00] VITALS: BP 105/50
[2017-04-23] MEDS: HYDROXYCHLOROQUINE 200 MG TAB PO SCH (08:47)
[2017-04-23] MEDS: OMEPRAZOLE 20 MG CAP PO SCH (08:47)
[2017-04-23] MEDS: rifAXIMin 550 MG TAB (XIFAXAN) PO SCH ×2 (08:47→21:51)
[2017-04-23] MEDS: predniSONE 5 MG TAB PO SCH (08:47)
[2017-04-23] MEDS: FUROSEMIDE 20 MG TAB PO SCH (08:48)
[2017-04-23] MEDS: SPIRONOLACTONE 50 MG TAB PO SCH (08:48)
[2017-04-23] MEDS: MIDODRINE 2.5 MG TAB PO SCH ×3 (08:48→16:56)
[2017-04-23 12:00] VITALS: BP 115/68
[2017-04-23] MEDS: LORATADINE 10 MG TAB PO SCH (14:19)
[2017-04-23 15:30] VITALS: BP 126/73
[2017-04-23 21:00] VITALS: BP 98/63
[2017-04-23] MEDS: NADOLOL 20MG TABLET PO SCH (21:00)
[2017-04-23 22:00] VITALS: BP 98/63
[2017-04-24] MEDS: LACTULOSE 20 GM/30 ML SYRUP UD PO SCH ×2 (01:31→06:18)
[2017-04-24 06:00] VITALS: BP 111/55
[2017-04-24] MEDS: LEVOTHYROXINE 50MCG TABLET (0.05MG) PO SCH (06:17)
[2017-04-24] MEDS: SLF 3 ML SYR IV SCH (06:17)
[2017-04-24 07:04] LABS: MEAN CORPUSCULAR HGB CONC 35.4 g/dl (32.0-36.5); MEAN CORPUSCULAR VOLUME 107.1 fl (80.0-96.0); PLATELET COUNT, AUTOMATED 122 10^3/uL (150-450); RED CELL DISTRIBUTION WIDTH 15.9 % (11.5-14.5); WHITE BLOOD COUNT 9.1 10^3/uL (4.0-10.0)
[2017-04-24 07:21] LABS: ANION GAP 10 MEQ/L (8-16); BLOOD UREA NITROGEN 12 MG/DL (7-18); CALCIUM LEVEL 8.7 MG/DL (8.8-10.2); CARBON DIOXIDE LEVEL 22 MEQ/L (21-32); CHLORIDE LEVEL 108 MEQ/L (98-107); GLOMERULAR FILTRATION RATE > 60.0 (>49); GLUCOSE, FASTING 117 MG/DL (80-110); POTASSIUM SERUM 3.7 MEQ/L (3.5-5.1); SODIUM LEVEL 140 MEQ/L (136-145)
[2017-04-24] MEDS: LORATADINE 10 MG TAB PO SCH (09:11)
[2017-04-24] MEDS: rifAXIMin 550 MG TAB (XIFAXAN) PO SCH (09:11)
[2017-04-24] MEDS: predniSONE 5 MG TAB PO SCH (09:11)
[2017-04-24] MEDS: SPIRONOLACTONE 50 MG TAB PO SCH (09:11)
[2017-04-24] MEDS: OMEPRAZOLE 20 MG CAP PO SCH (09:11)
[2017-04-24] MEDS: FUROSEMIDE 20 MG TAB PO SCH (09:11)
[2017-04-24] MEDS: HYDROXYCHLOROQUINE 200 MG TAB PO SCH (09:11)
[2017-04-24] MEDS: MIDODRINE 2.5 MG TAB PO SCH (09:15)
--- NOTE | 2017-04-27 16:25 | DSES ---
DATE OF ADMISSION: 04/19/2017 DATE OF DISCHARGE: 04/24/2017 PRIMARY CARE PROVIDER: Barbara Storm NP HISTORY: This is a 66-year-old male patient who follows with [facility] in [place] in the outpatient setting. He has known autoimmune hepatitis resulting in a recent hospitalization just a couple of weeks prior. He presented to the emergency room today with altered mental status, decreased alertness, as well as lack of energy and on and off confusion. He had been taking his medication up until the day of presentation when the was having difficulty getting him to take his medications. He was admitted to the hospital for metabolic encephalopathy, altered mental status, with history of autoimmune hepatitis. His ammonia level was 135 on admission, which is slightly higher than baseline, it did come up to 156 on 04/22/2017. The morning of discharge, his ammonia is 81, his mental status has improved and appears to be close to baseline. His labs have remained stable. He has been seen and evaluated by physical therapy who feel as though he is close to his baseline as well. He did have a CT of the head on admission without any acute changes. Family plans on providing 24 hour care upon his return home, they are eager to take him home today and he was felt to be safe with 24 hour care after being seen by physical therapy yesterday. DISCHARGE DIAGNOSES: Include: 1. Hepatic encephalopathy. 2. Pleural effusion associated with hepatic disorder. 3. Autoimmune hepatitis. 4. Chronic obstructive pulmonary disease (COPD). 5. Hypothyroidism. 6. Esophageal varices with cirrhosis. DISCHARGE MEDICATIONS: Include: - albuterol HFA two puffs inhaled every 4 hours as needed for shortness of breath - vitamin D 50,000 units weekly - furosemide 20 mg daily - hydroxychloroquine 200 mg daily - lactulose 15 mL by mouth four times a day - Levoxyl 50 mcg by mouth daily - midodrine 7.5 mg by mouth three times a day - nadolol 20 mg before bed - omeprazole 20 mg daily - prednisone 5 mg daily - rifaximin 550 mg by mouth twice a day - spironolactone 50 mg daily DISCHARGE PLAN: Will be activity as tolerated. Diet should be no added salt. He will followup with Dr. Davey, Barbara Storm, Dr. Sigala in 1 week.
== END 2017-04-24 11:25 | disposition home or self-care (01) | DRG 442 ==
LOC: M ED 10:24 → M ED INP 14:49 → M PCU 16:00 → M MS5PR 04-23 15:33
PROVIDERS: ADMIT Family Medicine; ATTEND Family Medicine
DX: K72.00 Acute and subacute hepatic failure without coma (principal); J91.8 Pleural effusion in other conditions classified elsewhere; I48.92 Unspecified atrial flutter; I85.10 Secondary esophageal varices without bleeding; K76.6 Portal hypertension; R18.8 Other ascites; K75.4 Autoimmune hepatitis; K74.60 Unspecified cirrhosis of liver; E03.9 Hypothyroidism, unspecified; K21.9 Gastro-esophageal reflux disease without esophagitis; I73.00 Raynaud's syndrome without gangrene; I10 Essential (primary) hypertension; J44.9 Chronic obstructive pulmonary disease, unspecified; F17.210 Nicotine dependence, cigarettes, uncomplicated; M62.89 Other specified disorders of muscle; Z79.52 Long term (current) use of systemic steroids; Z79.899 Other long term (current) drug therapy

== ENCOUNTER → 2017-05-18 | Outpatient (CLI) | payer MEDICARE, OTHER ==
[~2017-05-18] MED LIST changes: +PROHANCE 279.3MG/ML 15ML VIAL (A9576) As Ordered ONE; +PROHANCE 279.3MG/ML 5ML VIAL (A9576) As Ordered ONE
--- NOTE | 2017-05-18 17:11 | REP ---
MRI LIVER WITH AND WITHOUT CONTRAST: TECHNIQUE: Multiple sequences obtained in the axial and coronal planes, prior to and following the intravenous administration of 20 mL gadolinium. Comparison is made with prior studies most recent of which is 11/17/2016. Moderate upper abdominal ascites appears to have increased since prior study. Once again there are features of the liver compatible with cirrhosis with micronodular surface and significant decreased size of the right lobe. No mass lesion is seen. Diffuse heterogenous enhancement is again noted of the liver parenchyma with multiple micronodules diffusely which are low in signal on both T1 and T2 weighted images, compatible with multiple tiny regenerative nodules. The spleen does not appear to be significantly enlarged. The adrenals are unremarkable. There are tiny cysts in the pancreatic tail again seen which are stable, the largest measuring 1.6 cm in diameter. These do not demonstrate significant enhancement. Varices are again seen extending from the splenic hilum toward the left renal vein. No adenopathy is seen. Visualized kidneys are unremarkable. IMPRESSION: Moderate abdominal ascites has somewhat increased since the prior study. There are again findings of cirrhosis of the liver without any suspicious enhancing hepatic mass. Splenorenal varices are noted. Tiny cysts in the pancreatic tail are stable. Signed by Jose Walters MD 05/19/2017 04:55 P
== END ==
LOC: M RAD 14:53
PROVIDERS: ATTEND Internal Medicine Gastroenterology
DX: K74.60 Unspecified cirrhosis of liver (principal)
CPT/HCPCS: 74183; A9576

== ENCOUNTER 2017-05-30 17:44 | Inpatient (IN) | payer MEDICARE, OTHER ==
[~2017-05-30] VITALS: Ht 182.9 cm; Wt 98.0 kg
[~2017-05-30 17:44] MED LIST changes: -PROHANCE 279.3MG/ML 15ML VIAL (A9576) As Ordered ONE; -PROHANCE 279.3MG/ML 5ML VIAL (A9576) As Ordered ONE
[2017-05-30] MEDS ORDERED: ZINC100T2 PO (18:13)
[2017-05-30] MEDS ORDERED: NS 1,000 ML IV ONE (18:30)
[2017-05-30 18:34] LABS: VENOUS BASE EXCESS -1.1 (-2.0-2.0); VENOUS O2 SATURATION 91.7 % (60.0-80.0); VENOUS PARTIAL PRESSURE CO2 39.7 mmHg (38.0-50.0); VENOUS PARTIAL PRESSURE O2 67.5 mmHg (30.0-50.0); VENOUS STANDARD HCO3 23.4 MEQ/L; VENOUS TOTAL CO2 24.8 MEQ/L (24.0-28.0)
[2017-05-30 18:36] LABS: BASO # 0.1 10^3/uL (0.0-0.2); BASO % 1.1 % (0.0-1.0); EOS # 0.2 10^3/uL (0.0-0.50); EOS % 2.3 % (0.0-3.0); IMMATURE GRANULOCYTE % 0.4 % (0-0); LYMPH # 1.5 10^3/uL (1.5-4.5); LYMPH % 20.3 % (24.0-44.0); MEAN CORPUSCULAR HEMOGLOBIN 37.7 pg (27.0-33.0); MEAN CORPUSCULAR HGB CONC 34.6 g/dl (32.0-36.5); MONO # 1.1 10^3/uL (0.0-0.8); MONO % 14.3 % (0.0-5.0); NEUTROPHILS # 4.6 10^3/uL (1.8-7.7); NEUTROPHILS % 61.6 % (36.0-66.0); PLATELET COUNT, AUTOMATED 140 10^3/uL (150-450); RED CELL DISTRIBUTION WIDTH 15.9 % (11.5-14.5); WHITE BLOOD COUNT 7.4 10^3/uL (4.0-10.0)
[2017-05-30 18:52] LABS: ALBUMIN 1.9 GM/DL (3.2-5.2); ALBUMIN/GLOBULIN RATIO 0.41 (1.00-1.93); ALKALINE PHOSPHATASE 183 U/L (45-117); ALT/SGPT 67 U/L (12-78); ANION GAP 6 MEQ/L (8-16); AST/SGOT 87 U/L (7-37); BILIRUBIN,DIRECT 0.8 MG/DL (0.0-0.2); BILIRUBIN,TOTAL 3.2 MG/DL (0.2-1.0); BLOOD UREA NITROGEN 17 MG/DL (7-18); CALCIUM LEVEL 8.9 MG/DL (8.8-10.2); CARBON DIOXIDE LEVEL 24 MEQ/L (21-32); CHLORIDE LEVEL 106 MEQ/L (98-107); CREATININE FOR GFR 1.26 MG/DL (0.70-1.30); GLOMERULAR FILTRATION RATE > 60.0 (>49); GLUCOSE, FASTING 104 MG/DL (80-110); SODIUM LEVEL 136 MEQ/L (136-145); TOTAL PROTEIN 6.5 GM/DL (6.4-8.2)
--- NOTE | 2017-05-30 19:10 | REPUSA ---
CLINICAL HISTORY: Altered mental status COMPARISON: May 20, 2017. TECHNIQUE: Head CT without contrast. Total DLP 1312 mGy*cm Brain: Again seen is the thin crescent right frontotemporal subdural hemorrhage which has undergone n ormal organization of blood products, but stable in size measuring approximately 8 mm in depth (previ ously 9 mm). There is generalized parenchymal atrophy. No hydrocephalus, acute parenchymal edema or e vident mass. Calvarium: Unremarkable. Sinuses (partially visualized): Clear. Intracranial vessels: Atherosclerotic calcification of the anterior and posterior circulation. IMPRESSION: Stable to slightly reduced appearance of right frontotemporal subdural collection consist ent with subacute/chronic subdural hemorrhage. No acute findings.
[2017-05-30 19:22] LABS: POTASSIUM SERUM 5.5 MEQ/L (3.5-5.1)
[2017-05-30] MEDS ORDERED: LACTULOSE 20 GM/30 ML SYRUP UD PO ONE (19:45)
[2017-05-30] MEDS ORDERED: CLAR5TAB PO (19:59)
[2017-05-30] MEDS ORDERED: ZINC50TA PO (19:59)
[2017-05-30] MEDS ORDERED: ACETAMINOPHEN TAB 650MG DOSE (2X325MG) PO PRN (21:30)
[2017-05-30] MEDS ORDERED: ONDANSETRON 4MG/2ML VIAL (J2405) IV PRN (21:30)
--- NOTE | 2017-05-30 22:20 | REPUSA ---
CT of the chest without contrast Clinical statement: Shortness of breath. Technique: Multiple axial CT images were obtained with 5 mm cuts through the chest without administra tion of contrast. Comparison: 04/19/2017. Findings: There is no thoracic lymphadenopathy. The visualized portions of the thyroid gland is unrem arkable. There is a moderate left-sided pleural effusion with compressive atelectasis of the left low er lobe. The right lungs clear. Limited imaging of the upper abdomen demonstrates a large amount of a scites. Cirrhotic changes are seen throughout the liver. There are no suspicious osseous lesions. Impression: 1. New moderate sized left lower lobe pleural effusion with compressive atelectasis of the left lower lung. 2. Cirrhosis and large amount of abdominal ascites is grossly stable.
[2017-05-30 22:50] VITALS: BP 127/72
--- NOTE | 2017-05-30 23:01 | HPEPDOC ---
General Date of Admission May 30, 2017 at 20:23 Primary Care Physician: Manish Sigala M.D. Chief Complaint The patient is a 66-year-old male admitted with a reason for visit of Hepatic Encephalopathy. Source: Patient, Family Exam Limitations: Other (fatigue) Timing/Duration: Day(s) (3-5 days) Severity: Moderate Associated Symptoms: Cough, Shortness of breath History of Present Illness Mr. Thompson is a 58-year-old male with past medical history significant for hypertension, autoimmune hepatitis, liver cirrhosis, GERD, history of varices, history of hepatic metabolic encephalopathy who presents to the emergency department with his with a complaint of increasing fatigue and weakness since his prior discharge in March 2017 accompanied with onset of shortness of breath and nonproductive cough in the past few days, she states she has had a "cold" and may have given it to him. No other sick contact exposure nor recent travel. During the exam the patient is oriented however he is very fatigued, as such most of the HPI comes from his . According to the since his discharge in March 2017 she has noticed him getting progressively weaker, within the past 5 days it has really gotten worse, this morning when she awoke him he seemed more tired than usual he also had a decreased appetite, she also has noted that he is holding more fluid in his legs and that his abdomen appears distended. She states that for the past month his appetite has been decreasing and he has been getting progressively more bloated and distended appearing in his abdomen. She denies him complaining of a fever or muscle aches or chills, there have been no blood in his bowel or urine no pain with urination or defecation, she states usually goes to stools 2-3 times per day while he is taking his lactulose 20 mg 3 times a day, she states that last week he had no bowel movements on 05/27/2017 but states that on , 05/28/2017 he stooled 3 times. The patient has also recently had his oxygen needs increased by his pulmonary care doctor, he is now on home oxygen 2 L during the day and 4 L with ambulation due to progressive shortness of breath and O2 desaturation for the past month or so. His states she has been trying to take him to physical therapy but at times she is too weak to even go. Home Medications Scheduled Desloratadine (Clarinex) 5 Mg Tab, 5 MG PO DAILY, (Reported) Ergocalciferol (Vitamin D) 50,000 Unit Cap, 50,000 UNIT PO QWEEK, (Reported) SATURDAYS Furosemide (Furosemide) 20 Mg Tab, 20 MG PO DAILY, (Reported) Hydroxychloroquine Sulfate (Hydroxychloroquine Sulfat) 200 Mg Tab, 200 MG PO DAILY, (Reported) Lactulose (Lactulose) 10 Gm/15 Ml Mita, 15 ML PO QID, (Reported) Levothyroxine Sodium (Levoxyl) 50 Mcg Tab, 50 MCG PO DAILY, (Reported) Midodrine (Midodrine HCl) 2.5 Mg Tab, 7.5 MG PO TID, (Reported) Nadolol (Nadolol) 20 Mg Tab, 20 MG PO QHS, (Reported) Omeprazole (Omeprazole) 20 Mg Cap, 20 MG PO DAILY, (Reported) TAKES AT NOON Prednisone (Prednisone) 5 Mg Tab, 5 MG PO DAILY, (Reported) Rifaximin (Xifaxan) 550 Mg Tab, 550 MG PO BID, (Reported) Spironolactone (Spironolactone) 50 Mg Tab, 50 MG PO BID, (Reported) Zinc (Zinc) 50 Mg Tab, 50 MG PO QHS, (Reported) Scheduled PRN Albuterol Sulfate (Ventolin Hfa) 200 Puff/8 Gm Aers, 2 PUFF INH QID PRN for SHORTNESS OF BREATH, (Reported) Allergies Coded Allergies: ENVIROMENTAL (Verified Allergy, Unknown, 02/13/14) Past Medical History Medical History as per hpi Surgical History cataract sx Family History Mother and father both , he has 3 brothers and 3 sisters who are alive, lupus runs in the family, his children are alive and well, no unexpected deaths in his family. Social History Psychosocial History: No pertinent psych hx He lives in [facility] and is , he smokes up to 3 packs a day, has no alcohol or illicit drug use Review of Symptoms Constitutional: Reports: Malaise, Weakness, Fatigue, Weight Loss, Denies: Chills, Fever Eyes: Denies: Pain ENT: Denies: Head Aches Skin: Reports: Jaundice, Denies: Rash, Lesions Pulmonary: Reports: Dyspnea, Cough Cardiovascular: Reports: Edema (both legs), Denies: Chest Pain, Palpitations, Orthopnea, Lt Headedness Gastrointestinal: Denies: Nausea, Vomiting, Abdominal Pain, Diarrhea, Constipation, Melena, Hematochezia Genitourinary: Denies: Dysuria Hematologic: Denies: Bruising Neurological: Reports: Weakness, Denies: Numbness, Incoordination, Change in speech, Confusion (patient fatigued on exam but AAOx3) Psych: Reports: Mood Normal Physical Examination General Exam: Positive: Cooperative, No Acute Distress, Negative: Alert (fatigued and drowsy on exam) Eye Exam: Positive: Conjunctiva & lids normal, EOMI, Sclera icteric ENT Exam: Positive: Mucous membr. moist/pink, Pharynx Normal Neck Exam: Positive: Supple Chest Exam: Positive: Diminished, Other (crackles right sided), Negative: Rhonchi, Wheezing Heart Exam: Positive: Rate Normal, Normal S1, Normal S2, Negative: Murmurs Telemetry: Positive: No significant arrhythmia Abdomen Exam: Positive: Normal bowel sounds, Soft, Other (distended, non- tender ), Negative: Tenderness (no rebound tenderness, no guarding) Extremity Exam: Positive: Edema (+1 b/l LE), Normal pulses, Other (b/l palmar erythema), Negative: Clubbing, Cyanosis, Tenderness Neuro Exam: Positive: Normal Speech, Sensation Intact Psych Exam: Positive: Oriented x 3, Negative: Mental status NL (drowsy, fatigued, arousable to voice, opens eyes on command) Vital Signs Vital Signs Date Time Temp Pulse Resp B/P (MAP) Pulse Ox O2 Delivery O2 Flow Rate FiO2 05/30/17 22:28 96.6 68 20 141/63 (89) 97 05/30/17 17:46 Nasal Cannula 4.0 Laboratory Data Labs 24H Laboratory Tests 2 05/30/17 18:16: Immature Granulocyte % (Auto) 0.4H, White Blood Count 7.4, Red Blood Count 3.66L , Hemoglobin 13.8L, Hematocrit 39.9L, Mean Corpuscular Volume 109.0H, Mean Corpuscular Hemoglobin 37.7H, Mean Corpuscular Hemoglobin Concent 34.6, Red Cell Distribution Width 15.9H, Platelet Count 140L, Neutrophils (%) (Auto) 61.6 , Lymphocytes (%) (Auto) 20.3L, Monocytes (%) (Auto) 14.3H, Eosinophils (%) ( Auto) 2.3, Basophils (%) (Auto) 1.1H, Neutrophils # (Auto) 4.6, Lymphocytes # ( Auto) 1.5, Monocytes # (Auto) 1.1H, Eosinophils # (Auto) 0.2, Basophils # (Auto ) 0.1, Immature Granulocyte # (Auto) 0.0, Nucleated Red Blood Cells % (auto) 0.0 , Blood Gas Bicarbonate Standard 23.4, Venous Blood pH 7.392, Venous Blood Partial Pressure CO2 39.7, Venous Blood Partial Pressure O2 67.5H, Venous Blood Total Carbon Dioxide 24.8, Venous Blood HCO3 23.6, Venous Blood Oxygen Saturation 91.7H, Venous Blood Base Excess -1.1, Anion Gap 6L, Glomerular Filtration Rate > 60.0, Lactic Acid Level 3.1*H, Calcium Level 8.9, Aspartate Amino Transf (AST/SGOT) 87H, Alanine Aminotransferase (ALT/SGPT) 67, Alkaline Phosphatase 183H, Total Bilirubin 3.2H, Direct Bilirubin 0.8H, Ammonia 150H, Total Creatine Kinase 129, Creatine Kinase MB 3.3, Creatine Kinase MB Relative Index 2.55, Troponin I < 0.02, Total Protein 6.5, Albumin 1.9L, Albumin/ Globulin Ratio 0.41L, Thyroid Stimulating Hormone (TSH) 6.460H, Salicylates Level < 1.7L, Acetaminophen Level < 2.0L, Ethyl Alcohol Level < 0.003 05/30/17 18:37: Bedside Glucose (Misc Panel) 104 05/30/17 22:39: CBC/BMP Laboratory Tests 05/30/17 18:16 Red Blood Count 3.66 L, Mean Corpuscular Volume 109.0 H, Mean Corpuscular Hemoglobin 37.7 H, Mean Corpuscular Hemoglobin Concent 34.6, Red Cell Distribution Width 15.9 H, Neutrophils (%) (Auto) 61.6, Lymphocytes (%) (Auto) 20.3 L, Monocytes (%) (Auto) 14.3 H, Eosinophils (%) (Auto) 2.3, Basophils (%) ( Auto) 1.1 H, Neutrophils # (Auto) 4.6, Lymphocytes # (Auto) 1.5, Monocytes # ( Auto) 1.1 H, Eosinophils # (Auto) 0.2, Basophils # (Auto) 0.1 Microbiology Microbiology 05/30/17 Urine Culture, Received Pending Assessment/Plan This 58-year-old male who presents to the emergency department after a month- long progression of generalized fatigue and weakness associated with abdominal distention and bloating, bilateral lower extremity fluid accumulation, shortness of breath with development of cough. 1. Hepatic metabolic encephalopathy Secondary to liver cirrhosis from autoimmune hepatitis Patient's ammonia was elevated to 150 Received 30 of lactulose in the emergency Department On review of prior admission, it appears that lactulose dosed at 30 mg q6h worked well for him, will continue this inpt, to hold if > 4 BM in a 24 hour period continue to monitor ammonia level May consider increasing home lactulose dose once patient is discharged 2. Shortness of breath Secondary to volume overload secondary to liver cirrhosis, hypo-albuminemia ( albumin 1.9 on presentation) and likely home med. midodrine We will continue furosemide, increased to 40 mg every 6 hours Holding midodrine at this time Holding home spironolactone in light of elevated potassium Patient's abdomen was distended on physical exam but she did not have any abdominal pain, low suspicion for SBP May consider paracentesis if there is no improvement with diuresis May consider increasing home Lasix dose on discharge U/S in ED negative for DVT 3. Cough Chest x-ray in ED shows possible infiltrate and right lower CT chest pending Likely secondary to fluid retention We'll continue to diurese 4. Hyperbilirubinemia Bilirubin elevated 3.5, looks like baseline is 2.2 Patient does appear jaundiced on exam Secondary to his liver cirrhosis 5. Hyperkalemia -pt recently (one week ago) had his home spironolactone doubled, will hold for now in light of K at 5.5 on admission 6. Autoimmune hepatitis Continue home Plaquenil well and prednisone, rifaximin 7. History of varices Continue with nadolol therapy 8. Hypertension Continue with home medications 9. Hyperthyroidism TSH was elevated to 6.46 Continue with home medication will check T4 Will likely need to be reevaluated on discharge 10. DVT prophylaxis heparin Plan / VTE VTE Prophylaxis Ordered?: Yes NEIL JONES DO May 30, 2017 23:01
[2017-05-30 23:08] LABS: METHADONE URINE NEGATIVE (NEGATIVE)
[2017-05-30] MEDS: rifAXIMin 550 MG TAB (XIFAXAN) PO SCH (23:24)
[2017-05-30] MEDS: FUROSEMIDE 40 MG/4 ML VIAL (J1940) IV SCH (23:24)
[2017-05-30] MEDS: HEPARIN SOD (PORCINE) 5000 UNITS/ML VIAL SC SCH (23:24)
[2017-05-30] MEDS: NADOLOL 20MG TABLET PO SCH (23:53)
[2017-05-31] VITALS (10 sets, daily range): BP systolic 105–130; BP diastolic 59–70
[2017-05-31] MEDS: LACTULOSE 20 GM/30 ML SYRUP UD PO SCH ×5 (00:23→23:53)
[2017-05-31] MEDS: LEVOTHYROXINE 50MCG TABLET (0.05MG) PO SCH (05:44)
[2017-05-31] MEDS: HEPARIN SOD (PORCINE) 5000 UNITS/ML VIAL SC SCH ×3 (05:45→22:20)
[2017-05-31] MEDS: FUROSEMIDE 40 MG/4 ML VIAL (J1940) IV SCH ×2 (05:45→12:08)
[2017-05-31 05:54] LABS: MEAN CORPUSCULAR HEMOGLOBIN 37.2 pg (27.0-33.0); MEAN CORPUSCULAR HGB CONC 34.6 g/dl (32.0-36.5); MEAN CORPUSCULAR VOLUME 107.7 fl (80.0-96.0); PLATELET COUNT, AUTOMATED 139 10^3/uL (150-450); RED CELL DISTRIBUTION WIDTH 15.7 % (11.5-14.5); WHITE BLOOD COUNT 7.2 10^3/uL (4.0-10.0)
[2017-05-31 06:11] LABS: ALBUMIN 1.8 GM/DL (3.2-5.2); ALBUMIN/GLOBULIN RATIO 0.41 (1.00-1.93); ALKALINE PHOSPHATASE 178 U/L (45-117); ALT/SGPT 66 U/L (12-78); ANION GAP 9 MEQ/L (8-16); AST/SGOT 74 U/L (7-37); BILIRUBIN,TOTAL 3.3 MG/DL (0.2-1.0); BLOOD UREA NITROGEN 17 MG/DL (7-18); CARBON DIOXIDE LEVEL 22 MEQ/L (21-32); CHLORIDE LEVEL 109 MEQ/L (98-107); CREATININE FOR GFR 1.16 MG/DL (0.70-1.30); GLOMERULAR FILTRATION RATE > 60.0 (>49); GLUCOSE, FASTING 93 MG/DL (80-110); MAGNESIUM LEVEL 1.8 MG/DL (1.8-2.4); SODIUM LEVEL 140 MEQ/L (136-145); TOTAL PROTEIN 6.2 GM/DL (6.4-8.2)
[2017-05-31 06:21] LABS: POTASSIUM SERUM 4.3 MEQ/L (3.5-5.1)
[2017-05-31] MEDS ORDERED: MIDODRINE 2.5 MG TAB PO SCH (08:00)
--- NOTE | 2017-05-31 08:38 | REP ---
PORTABLE CHEST, ONE VIEW: HISTORY: Altered mental status. COMPARISON: 04/21/2017 Increased density is present in the left lower lobe consistent with atelectasis or infiltrate. The right lung is clear. The heart is normal in size. The pulmonary vasculature is normal in appearance. IMPRESSION: Left lower lobe atelectasis or infiltrate. Signed by Kelvin Cornejo MD 05/31/2017 09:20 A
[2017-05-31] MEDS: HYDROXYCHLOROQUINE 200 MG TAB PO SCH (09:09)
[2017-05-31] MEDS: DESLORATADINE 5 MG TAB (CLARINEX) PO SCH (09:09)
[2017-05-31] MEDS: predniSONE 5 MG TAB PO SCH (09:09)
[2017-05-31] MEDS: rifAXIMin 550 MG TAB (XIFAXAN) PO SCH ×2 (09:09→22:19)
--- NOTE | 2017-05-31 09:58 | REP ---
BILATERAL LOWER EXTREMITY DUPLEX VEINS: HISTORY: Swelling. RIGHT LOWER EXTREMITY: There are no filling defects in the deep venous system. The deep venous system is patent. IMPRESSION: There is no deep venous thrombosis. LEFT LOWER EXTREMITY: There are no filling defects in the deep venous system. The deep venous system is patent. IMPRESSION: There is no deep venous thrombosis. Signed by Kelvin Cornejo MD 05/31/2017 10:03 A
[2017-05-31] MEDS: OMEPRAZOLE 20 MG CAP PO SCH (12:08)
--- NOTE | 2017-05-31 14:27 | IPNPDOC ---
Subjective Date Seen The patient was seen on 05/31/17. Subjective Chief Complaint/HPI The patient is a 66-year-old male admitted with a reason for visit of Hepatic Encephalopathy. Events since last encounter Patient is arousable but is not able to hold a conversation or give logical replies to questions this morning. His tells me that his abdominal girth has been increasing and he has been getting more and more confused at home. General: Reports: ROS Unobtainable (limited by encephalopathy; patient denies all symptoms) Constitutional: Denies: Chills, Fever Pulmonary: Denies: Dyspnea, Cough Cardiovascular: Denies: Chest Pain Gastrointestinal: Denies: Nausea, Vomiting, Abdominal Pain Objective Physical Examination General Exam: Positive: Cooperative, No Acute Distress, Negative: Alert (drowsy on exam) ENT Exam: Positive: Mucous membr. moist/pink, Pharynx Normal Chest Exam: Positive: Diminished, Other (crackles right sided), Negative: Rhonchi, Wheezing Heart Exam: Positive: Rate Normal, Normal S1, Normal S2, Negative: Murmurs Telemetry: Positive: No significant arrhythmia Abdomen Exam: Positive: Normal bowel sounds, Soft, Other (distended, non- tender ), Negative: Tenderness Extremity Exam: Positive: Edema (+1 b/l LE), Normal pulses, Other (b/l palmar erythema), Negative: Clubbing, Cyanosis, Tenderness Psych Exam: Negative: Mental status NL (drowsy, fatigued, arousable to voice, opens eyes on command), Oriented x 3 Assessment /Plan Problems (1) Hepatic encephalopathy Status: Acute Response to Treatment: Stable Problem Text: Likely due to inadequate dose of lactulose at home - Recheck ammonia level in the morning - Continue lactulose 30 ml Q6H - Continue rifixamin (2) Pleural effusion associated with hepatic disorder Problem Text: CT chest shows: 1. New moderate sized left lower lobe pleural effusion with compressive atelectasis of the left lower lung. - Continue lasix 40 mg IV Q6H (3) Hyperbilirubinemia Status: Acute Problem Text: Baseline ~2.2; elevated to 3.5 - Monitor daily (4) Ascites Status: Chronic Response to Treatment: Worse Problem Text: Increased over the last 3 weeks per family; due to cirrhosis. - No evidence of SBP with nontender abdomen, afebrile patient, and normal WBCs - Family requesting paracentesis or drain; at this point, as patient is not uncomfortable, I recommended medications to reduce ascites and if it persists, consider GI consult tomorrow (5) Hyperkalemia Status: Acute Response to Treatment: Improving Problem Text: Potassium improved with holding spironolactone. I do think he would benefit from spironolactone in terms of ascites - will recheck BMP this afternoon and if potassium is continuing to trend down, will restart spironolactone (6) Hypothyroidism Status: Chronic Problem Text: TSH mildly elevated; in setting of acute illness, will continue home dose of levothyroxine and recheck as an outpatient (7) Autoimmune hepatitis Status: Chronic Response to Treatment: Stable Problem Text: Patient's family is very interested in pursuing a liver transplant; I am not sure if Mr. Thompson is a candidate for this. Per family, he is not currently on the transplant list, but they were told that if he worsened, he might be able to get on the transplant list. - Consider contacting his Liver specialist in [place] tomorrow - Continue HD plaquenil and prednisone (8) Esophageal varices in cirrhosis Status: Chronic Response to Treatment: Stable Problem Text: Continue nadolol Plan/VTE VTE Prophylaxis Ordered?: Yes VS, I&O, 24H, Fishbone Vital Signs/I&O Vital Signs Date Time Temp Pulse Resp B/P (MAP) Pulse Ox O2 Delivery O2 Flow Rate FiO2 05/31/17 10:00 96.8 75 17 123/67 (85) 94 Nasal Cannula 2.0 I&O- Last 24 Hours up to 6 AM 06/01/17 06:00 Intake Total 360 ml Output Total 600 ml Balance -240 ml Laboratory Data 24H LABS Laboratory Tests 2 05/30/17 18:16: Immature Granulocyte % (Auto) 0.4H, White Blood Count 7.4, Red Blood Count 3.66L , Hemoglobin 13.8L, Hematocrit 39.9L, Mean Corpuscular Volume 109.0H, Mean Corpuscular Hemoglobin 37.7H, Mean Corpuscular Hemoglobin Concent 34.6, Red Cell Distribution Width 15.9H, Platelet Count 140L, Neutrophils (%) (Auto) 61.6 , Lymphocytes (%) (Auto) 20.3L, Monocytes (%) (Auto) 14.3H, Eosinophils (%) ( Auto) 2.3, Basophils (%) (Auto) 1.1H, Neutrophils # (Auto) 4.6, Lymphocytes # ( Auto) 1.5, Monocytes # (Auto) 1.1H, Eosinophils # (Auto) 0.2, Basophils # (Auto ) 0.1, Immature Granulocyte # (Auto) 0.0, Nucleated Red Blood Cells % (auto) 0.0 , Blood Gas Bicarbonate Standard 23.4, Venous Blood pH 7.392, Venous Blood Partial Pressure CO2 39.7, Venous Blood Partial Pressure O2 67.5H, Venous Blood Total Carbon Dioxide 24.8, Venous Blood HCO3 23.6, Venous Blood Oxygen Saturation 91.7H, Venous Blood Base Excess -1.1, Anion Gap 6L, Glomerular Filtration Rate > 60.0, Lactic Acid Level 3.1*H, Calcium Level 8.9, Aspartate Amino Transf (AST/SGOT) 87H, Alanine Aminotransferase (ALT/SGPT) 67, Alkaline Phosphatase 183H, Total Bilirubin 3.2H, Direct Bilirubin 0.8H, Ammonia 150H, Total Creatine Kinase 129, Creatine Kinase MB 3.3, Creatine Kinase MB Relative Index 2.55, Troponin I < 0.02, Total Protein 6.5, Albumin 1.9L, Albumin/ Globulin Ratio 0.41L, Thyroid Stimulating Hormone (TSH) 6.460H, Salicylates Level < 1.7L, Acetaminophen Level < 2.0L, Ethyl Alcohol Level < 0.003 05/30/17 18:37: Bedside Glucose (Misc Panel) 104 05/30/17 22:39: Urine Appearance CLEAR, Urine Color THERESA, Urine pH 6.0, Urine Specific [place] 1.019, Urine Protein NEGATIVE, Urine Glucose (UA) NEGATIVE, Urine Ketones NEGATIVE, Urine Urobilinogen 2.0H, Urine Bilirubin NEGATIVE, Urine Leukocyte Esterase NEGATIVE, Urine Blood NEGATIVE, Urine Nitrite NEGATIVE, Urine WBC (Auto ) 2, Urine RBC (Auto) 3, Urine Hyaline Casts (Auto) 17, Urine Bacteria (Auto) NEGATIVE, Urine Squamous Epithelial Cells 0, Urine Mucus (Auto) LARGE, Urine Sperm (Auto) , Urine Amphetamines Screen NEGATIVE, Urine Benzodiazepines Screen NEGATIVE, Urine Opiates Screen NEGATIVE, Urine Methadone Screen NEGATIVE, Urine Barbiturates Screen NEGATIVE, Urine Phencyclidine Screen NEGATIVE, Urine Cocaine Metabolite Screen NEGATIVE, Urine Cannabinoids Screen NEGATIVE 05/30/17 23:00: Lactic Acid Followup at 4 Hours 2.1*H 05/31/17 05:36: Nucleated Red Blood Cells % (auto) 0.0, Anion Gap 9, Glomerular Filtration Rate > 60.0, Blood Urea Nitrogen 17, Creatinine 1.16, Sodium Level 140, Potassium Level 4.3#, Chloride Level 109H, Carbon Dioxide Level 22, Calcium Level 9.0, Aspartate Amino Transf (AST/SGOT) 74H, Alanine Aminotransferase (ALT/SGPT) 66, Alkaline Phosphatase 178H, Total Bilirubin 3.3H, Total Protein 6.2L, Albumin 1.8L, Magnesium Level 1.8, Albumin/Globulin Ratio 0.41L CBC/BMP Laboratory Tests 05/30/17 18:16 Red Blood Count 3.66 L, Mean Corpuscular Volume 109.0 H, Mean Corpuscular Hemoglobin 37.7 H, Mean Corpuscular Hemoglobin Concent 34.6, Red Cell Distribution Width 15.9 H, Neutrophils (%) (Auto) 61.6, Lymphocytes (%) (Auto) 20.3 L, Monocytes (%) (Auto) 14.3 H, Eosinophils (%) (Auto) 2.3, Basophils (%) ( Auto) 1.1 H, Neutrophils # (Auto) 4.6, Lymphocytes # (Auto) 1.5, Monocytes # ( Auto) 1.1 H, Eosinophils # (Auto) 0.2, Basophils # (Auto) 0.1 05/31/17 05:36 Red Blood Count 3.49 L, Mean Corpuscular Volume 107.7 H, Mean Corpuscular Hemoglobin 37.2 H, Mean Corpuscular Hemoglobin Concent 34.6, Red Cell Distribution Width 15.7 H, Calcium Level 9.0, Aspartate Amino Transf (AST/SGOT) 74 H, Alanine Aminotransferase (ALT/SGPT) 66, Alkaline Phosphatase 178 H, Total Bilirubin 3.3 H, Total Protein 6.2 L, Albumin 1.8 L Microbiology Microbiology 05/30/17 Urine Culture, Received Pending DORCAS COPELAND MD May 31, 2017 14:27
[2017-05-31 15:56] LABS: CALCIUM LEVEL 9.3 MG/DL (8.8-10.2); CREATININE FOR GFR 1.54 MG/DL (0.70-1.30); GLOMERULAR FILTRATION RATE 48.1 (>49); POTASSIUM SERUM 4.5 MEQ/L (3.5-5.1)
[2017-05-31] MEDS ORDERED: SPIRONOLACTONE 12.5MG PER 1/2 TABLET PO SCH (17:00)
--- NOTE | 2017-05-31 17:56 | ECGEPIP ---
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
--- NOTE | 2017-05-31 18:23 | IPNPDOC ---
Text Note Date of Service Chart review NOTE I reviewed results of the patient's BMP done this afternoon, which showed that Cr had increased from 1.1 to 1.54. I called the patient's GI specialist (Dr. Warren) at [facility] and spoke with the on-call Fellow Dr. Batista. His recommendations are as follows: - Paracentesis tomorrow - therapeutic and diagnostic; orders entered, NPO after midnight - Albumin 25 g Q6H overnight, and then after paracentesis replace albumin with 6 -8 g per L removed; I discussed this with the patient's , who is his health care proxy, over the phone and obtained verbal consent; Dr. Knox obtained written consent in the hospital - Discontinue IV lasix and avoid IV form of lasix in this cirrhotic patient in the future; hold all home PO diuretics today and tomorrow and restart on 06/02 if his BP will tolerate these - Check Doppler ultrasound of the abdominal vessels; I discussed this with lawn care technician - patient needs to be NPO for 6-8 hours prior to having this test done, so they will do it first thing tomorrow morning - orders placed for Liver doppler and abdominal ultrasound complete. Plan was discussed with the patient's and the patient's nurse; the patient' s states he is more alert this evening. The patient's nurse reported that he has had 3 bowel movements today. I reviewed his VS, which have remained stable. VS,Fishbone, I+O VS, Fishbone, I+O Laboratory Tests 05/30/17 18:16 Red Blood Count 3.66 L, Mean Corpuscular Volume 109.0 H, Mean Corpuscular Hemoglobin 37.7 H, Mean Corpuscular Hemoglobin Concent 34.6, Red Cell Distribution Width 15.9 H, Neutrophils (%) (Auto) 61.6, Lymphocytes (%) (Auto) 20.3 L, Monocytes (%) (Auto) 14.3 H, Eosinophils (%) (Auto) 2.3, Basophils (%) ( Auto) 1.1 H, Neutrophils # (Auto) 4.6, Lymphocytes # (Auto) 1.5, Monocytes # ( Auto) 1.1 H, Eosinophils # (Auto) 0.2, Basophils # (Auto) 0.1 05/31/17 05:36 Red Blood Count 3.49 L, Mean Corpuscular Volume 107.7 H, Mean Corpuscular Hemoglobin 37.2 H, Mean Corpuscular Hemoglobin Concent 34.6, Red Cell Distribution Width 15.7 H, Calcium Level 9.0, Aspartate Amino Transf (AST/SGOT) 74 H, Alanine Aminotransferase (ALT/SGPT) 66, Alkaline Phosphatase 178 H, Total Bilirubin 3.3 H, Total Protein 6.2 L, Albumin 1.8 L 05/31/17 15:07 Calcium Level 9.3 Vital Signs Date Time Temp Pulse Resp B/P (MAP) Pulse Ox O2 Delivery O2 Flow Rate FiO2 05/31/17 14:00 96.6 75 18 123/67 (85) 92 Nasal Cannula 2.0 I&O- Last 24 Hours up to 6 AM 06/01/17 06:00 Intake Total 480 ml Output Total 800 ml Balance -320 ml DORCAS COPELAND MD May 31, 2017 18:23
[2017-05-31] MEDS: NADOLOL 20MG TABLET PO SCH (22:19)
[2017-06-01] VITALS (10 sets, daily range): BP systolic 99–115; BP diastolic 50–67
[2017-06-01] MEDS: LACTULOSE 20 GM/30 ML SYRUP UD PO SCH ×3 (06:19→18:08)
[2017-06-01] MEDS: LEVOTHYROXINE 50MCG TABLET (0.05MG) PO SCH (06:19)
[2017-06-01 06:28] LABS: MEAN CORPUSCULAR HEMOGLOBIN 37.9 pg (27.0-33.0); MEAN CORPUSCULAR VOLUME 108.3 fl (80.0-96.0); RED CELL DISTRIBUTION WIDTH 15.9 % (11.5-14.5); WHITE BLOOD COUNT 6.4 10^3/uL (4.0-10.0)
[2017-06-01] MEDS: HEPARIN SOD (PORCINE) 5000 UNITS/ML VIAL SC SCH ×3 (06:30→21:49)
--- NOTE | 2017-06-01 06:42 | ECHO ---
DATE OF PROCEDURE: 05/31/2017 AGE: 66 GENDER: Male. HEIGHT: 72 inches. WEIGHT: 226 pounds. BODY SURFACE AREA: 2.24 meters squared. Inpatient [address] [facility], Room 4229. REFERRING PHYSICIAN: Lg Lewis MD INDICATIONS: Congestive heart failure (CHF). MEASUREMENTS: 2D MEASUREMENTS: RV - 3.6 cm LV - 4.3 cm Septum 1.0 cm Posterior wall 1.0 cm Aortic root 3.9 cm LA - 3.6 cm LVEF 65% DOPPLER MEASUREMENTS: AV - 1.9 m/s LVOT - 0.83 m/s MV-E 59, A 83, E/A ratio 0.7 Early mitral deceleration time 250 ms E prime 5, A prime 8, E/E prime ratio 11.6 PV - 0.8 m/s Pulmonary artery acceleration time 151 ms RVSP 44 mmHg COMMENTS: Normal sinus rhythm without intraventricular conduction disturbance. Technically difficult study in light of the patient's body habitus and chest configuration. Left atrial size was upper limits of normal. Normal left ventricular size. Right heart chambers also appeared to be normal. LV wall thickness was normal. On real-time imaging from the parasternal and apical projections, left ventricular wall motion appeared to be normal. Slightly thickened mitral annulus, but normal appearing leaflet thickness and excursion with no posterior systolic buckling. ? three equal size aortic cusps? With mildly thickened cusp edges, but adequate cusp separation. Borderline dilated aortic root, but normal proximal ascending aorta measuring 3.1 cm. No apparent intracardiac mass or pericardial effusion. Color flow Doppler study taken from the parasternal and projections showed no aortic, no mitral and only very mild tricuspid insufficiency. Guided continuous wave Doppler of his aortic valve showed a normal peak systolic velocity against LV outflow tract obstruction. Pulsed and continuous wave Doppler of his LV inflow tract showed normal peak diastolic filling velocities against mitral stenosis. There was more prominent late diastolic/atrial dependent filling pattern. Diastolic dysfunction was further confirmed by prolonged early mitral deceleration time and tissue Doppler of his mitral annulus. However, current estimated mean left atrial pressure was upper limits of normal. Pulsed and continuous wave Doppler of his pulmonary trunk showed a normal peak systolic velocity against RV outflow tract obstruction. His pulmonary artery acceleration time was normal against an elevated pulmonary vascular resistance. Guided continuous wave Doppler of his tricuspid valve allowed our estimation of his right ventricular systolic pressure (at least moderately increased), central venous pressure was estimated at 10 mmHg, as we were unable to visualize his inferior vena cava. CONCLUSION: Technically difficult study. Normal left ventricular size, wall thickness and wall motion. Borderline left atrial enlargement with Doppler evidence of impairment of LV diastolic function, but currently normal estimated mean left atrial pressure. Normal right heart chamber sizes and wall motion with Doppler evidence of moderate pulmonary hypertension. Subtle degenerative changes of his mitral and aortic valvular apparatus without functional valvular abnormality.
[2017-06-01 06:46] LABS: PLATELET COUNT, AUTOMATED 98 10^3/uL (150-450)
[2017-06-01 06:50] LABS: PLATELET F 97
[2017-06-01 07:00] LABS: ALBUMIN 2.2 GM/DL (3.2-5.2); ALBUMIN/GLOBULIN RATIO 0.61 (1.00-1.93); ALKALINE PHOSPHATASE 137 U/L (45-117); ALT/SGPT 54 U/L (12-78); ANION GAP 9 MEQ/L (8-16); AST/SGOT 59 U/L (7-37); BILIRUBIN,TOTAL 3.7 MG/DL (0.2-1.0); BLOOD UREA NITROGEN 19 MG/DL (7-18); CALCIUM LEVEL 9.1 MG/DL (8.8-10.2); CARBON DIOXIDE LEVEL 25 MEQ/L (21-32); CHLORIDE LEVEL 107 MEQ/L (98-107); CREATININE FOR GFR 1.23 MG/DL (0.70-1.30); GLOMERULAR FILTRATION RATE > 60.0 (>49); GLUCOSE, FASTING 85 MG/DL (80-110); MAGNESIUM LEVEL 1.7 MG/DL (1.8-2.4); POTASSIUM SERUM 3.8 MEQ/L (3.5-5.1); SODIUM LEVEL 141 MEQ/L (136-145); TOTAL PROTEIN 5.8 GM/DL (6.4-8.2)
[2017-06-01] MEDS: rifAXIMin 550 MG TAB (XIFAXAN) PO SCH ×2 (08:07→21:49)
[2017-06-01] MEDS: HYDROXYCHLOROQUINE 200 MG TAB PO SCH (08:07)
[2017-06-01] MEDS: predniSONE 5 MG TAB PO SCH (08:07)
[2017-06-01] MEDS: DESLORATADINE 5 MG TAB (CLARINEX) PO SCH (08:07)
[2017-06-01] MEDS ORDERED: SPIRONOLACTONE 12.5MG PER 1/2 TABLET PO SCH (09:00)
--- NOTE | 2017-06-01 09:44 | IPNPDOC ---
Subjective Date Seen The patient was seen on 06/01/17. Subjective Chief Complaint/HPI The patient is a 66-year-old male admitted with a reason for visit of Hepatic Encephalopathy. Events since last encounter Pt this morning without new concerns. He is feeling better. General: Denies: Fatigue Constitutional: Denies: Chills, Fever Pulmonary: Denies: Dyspnea, Cough Cardiovascular: Denies: Chest Pain, Palpitations Gastrointestinal: Denies: Nausea, Vomiting Neurological: Reports: Weakness Psych: Reports: Mood Normal Objective Physical Examination General Exam: Positive: Cooperative, No Acute Distress, Negative: Alert (drowsy on exam) ENT Exam: Positive: Mucous membr. moist/pink Chest Exam: Positive: Diminished, Other (crackles right sided), Negative: Rhonchi, Wheezing Heart Exam: Positive: Rate Normal, Normal S1, Normal S2, Negative: Murmurs Telemetry: Positive: No significant arrhythmia Abdomen Exam: Positive: Normal bowel sounds, Soft, Other (distended, non- tender ), Negative: Tenderness Extremity Exam: Positive: Edema (+2 mm b/l LE), Negative: Clubbing, Cyanosis, Tenderness Psych Exam: Positive: Mental status NL, Oriented x 3 Assessment /Plan Problems (1) Hepatic encephalopathy Status: Acute Response to Treatment: Stable Problem Text: 06/01 Ammonia down from 150 to 64, MS improved. Plan to have Abd US today with paracentesis and albumin replacement. Dr Plascencia spoke with GI Syr 05/31. 05/31 Likely due to inadequate dose of lactulose at home - Recheck ammonia level in the morning - Continue lactulose 30 ml Q6H - Continue rifixamin (2) Pleural effusion associated with hepatic disorder Problem Text: 06/01 - Resp status stable. 05/31 CT chest shows: 1. New moderate sized left lower lobe pleural effusion with compressive atelectasis of the left lower lung. - Continue lasix 40 mg IV Q6H (3) Hyperbilirubinemia Status: Acute Problem Text: 06/01 - T Bili 3.7 today. 05/31 Baseline ~2.2; elevated to 3.5 - Monitor daily (4) Ascites Status: Chronic Response to Treatment: Worse Problem Text: Increased over the last 3 weeks per family; due to cirrhosis. - No evidence of SBP with nontender abdomen, afebrile patient, and normal WBCs - Family requesting paracentesis or drain; at this point, as patient is not uncomfortable, I recommended medications to reduce ascites and if it persists, consider GI consult tomorrow (5) Hyperkalemia Status: Acute Response to Treatment: Improving Problem Text: Potassium improved with holding spironolactone. I do think he would benefit from spironolactone in terms of ascites - will recheck BMP this afternoon and if potassium is continuing to trend down, will restart spironolactone (6) Hypothyroidism Status: Chronic Problem Text: TSH mildly elevated; in setting of acute illness, will continue home dose of levothyroxine and recheck as an outpatient (7) Autoimmune hepatitis Status: Chronic Response to Treatment: Stable Problem Text: Patient's family is very interested in pursuing a liver transplant; I am not sure if Mr. Thompson is a candidate for this. Per family, he is not currently on the transplant list, but they were told that if he worsened, he might be able to get on the transplant list. - Consider contacting his Liver specialist in [place] tomorrow - Continue HD plaquenil and prednisone (8) Esophageal varices in cirrhosis Status: Chronic Response to Treatment: Stable Problem Text: Continue nadolol Plan/VTE VTE Prophylaxis Ordered?: Yes VS, I&O, 24H, Fishbone Vital Signs/I&O Vital Signs Date Time Temp Pulse Resp B/P (MAP) Pulse Ox O2 Delivery O2 Flow Rate FiO2 06/01/17 06:30 97.5 71 18 108/63 (78) 96 Nasal Cannula 2.0 Laboratory Data 24H LABS Laboratory Tests 2 05/31/17 15:07: Anion Gap 9, Glomerular Filtration Rate 48.1L, Blood Urea Nitrogen 18, Creatinine 1.54H, Sodium Level 140, Potassium Level 4.5, Chloride Level 106, Carbon Dioxide Level 25, Calcium Level 9.3 06/01/17 06:17: Anion Gap 9, Glomerular Filtration Rate > 60.0, Blood Urea Nitrogen 19H, Creatinine 1.23, Sodium Level 141, Potassium Level 3.8, Chloride Level 107, Carbon Dioxide Level 25, Calcium Level 9.1, Nucleated Red Blood Cells % (auto) 0.0, Immature Platelet Fraction 2.0, Aspartate Amino Transf (AST/SGOT) 59H, Alanine Aminotransferase (ALT/SGPT) 54, Alkaline Phosphatase 137H, Total Bilirubin 3.7H, Total Protein 5.8L, Albumin 2.2#L, Magnesium Level 1.7L, Ammonia 64H, Albumin/Globulin Ratio 0.61L CBC/BMP Laboratory Tests 05/31/17 15:07 Calcium Level 9.3 06/01/17 06:17 Calcium Level 9.1, Red Blood Count 3.01 L, Mean Corpuscular Volume 108.3 H, Mean Corpuscular Hemoglobin 37.9 H, Mean Corpuscular Hemoglobin Concent 35.0, Red Cell Distribution Width 15.9 H, Aspartate Amino Transf (AST/SGOT) 59 H, Alanine Aminotransferase (ALT/SGPT) 54, Alkaline Phosphatase 137 H, Total Bilirubin 3.7 H, Total Protein 5.8 L, Albumin 2.2 #L Microbiology Microbiology 05/30/17 Urine Culture - Final, Complete EVELINE WILKERSON PA-C Jun 01, 2017 09:44
[2017-06-01] MEDS: OMEPRAZOLE 20 MG CAP PO SCH (12:26)
[2017-06-01 16:19] LABS: TOTAL PROTEIN, BODY FLUID 0.5 G/DL (NOT ESTABLISHED)
[2017-06-01 16:34] LABS: BF MONONUCLEAR CELL % 64.4 % (0-0); BF POLYMORPHONUCLEAR CELL % 35.6 % (0-0); RBC BODY FLUID < 2 10^3/uL (<2); WBC BODY FLUID 115 /uL (0-10)
[2017-06-01 16:39] LABS: BF DIFF IF INDICATED? YES (NO)
--- NOTE | 2017-06-01 17:54 | REP ---
Abdominal ultrasound complete with liver Doppler flow study: 06/01/2017. Clinical history. Increased ascites. Comparison: MRI abdomen 05/18/2017, limited abdominal ultrasound 04/09/2017. Also, CT chest 05/30/2017. Findings: Liver is small with coarsened echotexture. Somewhat prominent left hepatic lobe consistent with advanced cirrhosis. Very limited visualization due to limited sonographic windows. There is extensive tissue edema overlying. The gallbladder is not visualized. Limited scanning windows. Likewise the common bile duct cannot be seen. Pancreas is partially obscured due to extensive gas shadowing. The spleen is 10.2 cm long and homogeneous. There is trace amount of ascites and today's study dramatic difference from the 05/30/2017 CT chest which included the upper abdomen. The right kidney is 11 x 5 x 5.1 cm. The left kidney is 11 x 4.4 x 5 cm. Neither shows hydronephrosis or gross mass. Impression: 1. Advanced cirrhosis of the liver with interval drainage of the ascites and marked decrease in the ascites which is now not visible despite large quantities [address] Scanning is quite challenging because of the tissue edema and overlying bowel gas with the gallbladder fossa and common duct not visible and only limited views of the liver. The aorta is without aneurysm. Kidneys intact. Abdominal Doppler: Small amounts of ascites seen. No gross liver mass or gallstones. Main pulmonary vein and common duct cannot be visualized. The exam was limited. The right and left portal veins cannot be seen. The main portal vein is not visible. Hepatic veins visible and show monophasic flow. The splenic vein shows velocity 17.1 cm/S at the hilum and more distally into the pancreas 21 cm/S. Flow is toward the liver. Hepatic artery shows 40.2 cm/S. Impression: Quite limited Doppler of the hepatic vessels with only the splenic vein from the hilum to the pancreas seen and the hepatic artery. The intrahepatic veins and portal veins are not well visualized. Some Doppler of the hepatic veins suggest monophasic flow. Signed by Daniel Crook MD 06/02/2017 08:19 P
[2017-06-01] MEDS: NADOLOL 20MG TABLET PO SCH (21:00)
[2017-06-02] VITALS (7 sets, daily range): BP systolic 108–128; BP diastolic 55–76
[2017-06-02] MEDS: LACTULOSE 20 GM/30 ML SYRUP UD PO SCH ×5 (00:09→23:55)
[2017-06-02] MEDS: HEPARIN SOD (PORCINE) 5000 UNITS/ML VIAL SC SCH ×3 (05:56→21:40)
[2017-06-02] MEDS: LEVOTHYROXINE 50MCG TABLET (0.05MG) PO SCH (05:56)
[2017-06-02 06:33] LABS: MEAN CORPUSCULAR HEMOGLOBIN 37.5 pg (27.0-33.0); MEAN CORPUSCULAR HGB CONC 34.1 g/dl (32.0-36.5); MEAN CORPUSCULAR VOLUME 109.9 fl (80.0-96.0); RED CELL DISTRIBUTION WIDTH 15.9 % (11.5-14.5); WHITE BLOOD COUNT 6.2 10^3/uL (4.0-10.0)
[2017-06-02 06:47] LABS: ALBUMIN 2.2 GM/DL (3.2-5.2); ALBUMIN/GLOBULIN RATIO 0.67 (1.00-1.93); ALKALINE PHOSPHATASE 132 U/L (45-117); ALT/SGPT 53 U/L (12-78); ANION GAP 9 MEQ/L (8-16); AST/SGOT 61 U/L (7-37); BILIRUBIN,TOTAL 3.1 MG/DL (0.2-1.0); BLOOD UREA NITROGEN 18 MG/DL (7-18); CALCIUM LEVEL 8.8 MG/DL (8.8-10.2); CARBON DIOXIDE LEVEL 24 MEQ/L (21-32); CHLORIDE LEVEL 109 MEQ/L (98-107); CREATININE FOR GFR 1.16 MG/DL (0.70-1.30); GLOMERULAR FILTRATION RATE > 60.0 (>49); GLUCOSE, FASTING 90 MG/DL (80-110); POTASSIUM SERUM 3.7 MEQ/L (3.5-5.1); SODIUM LEVEL 142 MEQ/L (136-145); TOTAL PROTEIN 5.5 GM/DL (6.4-8.2)
[2017-06-02 06:48] LABS: PLATELET COUNT, AUTOMATED 91 10^3/uL (150-450)
--- NOTE | 2017-06-02 08:16 | REP ---
Ultrasound-guided paracentesis The procedure was performed under the direct supervision of Dr. Crook. The risks and benefits of the procedure were explained and informed consent was obtained by the healthcare proxy. The largest pocket of fluid was localized in the left flank using ultrasound guidance. The skin was prepped and draped in a sterile fashion. 1% lidocaine was used as a local anesthetic. An 8-[place] multi side-hole catheter was inserted using trocar technique. 4,550 ml of clear yellow fluid was withdrawn with a sample sent to the lab for analysis. The the patient tolerated the procedure well and there were no immediate complications. After the appropriate amount of monitored convalescence the patient was discharged from the department. Reviewed by ELIECER Shannon 06/01/2017 03:40 PSigned by Daniel Crook MD 06/02/2017 08:07 Jorge
[2017-06-02] MEDS: HYDROXYCHLOROQUINE 200 MG TAB PO SCH (09:34)
[2017-06-02] MEDS: predniSONE 5 MG TAB PO SCH (09:34)
[2017-06-02] MEDS: DESLORATADINE 5 MG TAB (CLARINEX) PO SCH (09:34)
[2017-06-02] MEDS: rifAXIMin 550 MG TAB (XIFAXAN) PO SCH ×2 (09:34→21:39)
[2017-06-02] MEDS: OMEPRAZOLE 20 MG CAP PO SCH (11:32)
[2017-06-02] MEDS: NADOLOL 20MG TABLET PO SCH (21:40)
[2017-06-03] VITALS (7 sets, daily range): BP systolic 104–133; BP diastolic 56–78
--- NOTE | 2017-06-03 00:25 | IPNPDOC ---
Subjective Date Seen The patient was seen on 06/02/17. Subjective Chief Complaint/HPI The patient is a 66-year-old male admitted with a reason for visit of Hepatic Encephalopathy. Events since last encounter Family at bedside. Patient appears more alert than previous day, sleepy but able to carry a conversation with prompting. Family feels patient is improving. They affirm that he was consistent with lactulose use at home. Patient denies nausea or belly pain, but appetite remains poor. General: Reports: Fatigue, Denies: Chills, Normal Appetite Constitutional: Reports: Malaise, Denies: Fever Skin: Reports: Jaundice Pulmonary: Denies: Dyspnea, Cough Cardiovascular: Reports: Chest Pain Gastrointestinal: Reports: Diarrhea, Denies: Nausea, Vomiting, Abdominal Pain, Constipation Objective Physical Examination General Exam: Positive: Alert (drowsy on exam), Cooperative, No Acute Distress ENT Exam: Positive: Mucous membr. moist/pink Chest Exam: Positive: Diminished, Other (crackles right sided), Negative: Rhonchi, Wheezing Heart Exam: Positive: Rate Normal, Normal S1, Normal S2, Negative: Murmurs Telemetry: Positive: No significant arrhythmia Abdomen Exam: Positive: Normal bowel sounds, Soft, Negative: Tenderness Extremity Exam: Positive: Edema (+2 mm b/l LE), Negative: Clubbing, Cyanosis, Tenderness Psych Exam: Positive: Mental status NL, Oriented x 3 Assessment /Plan Problems (1) Hepatic encephalopathy Status: Acute Response to Treatment: Stable Problem Text: 06/01 Ammonia down from 150 to 64, MS improved. Plan to have Abd US today with paracentesis and albumin replacement. Dr Plascencia spoke with GI Syr 05/31. 05/31 Likely due to inadequate dose of lactulose at home - Recheck ammonia level in the morning - Continue lactulose 30 ml Q6H - Continue rifixamin (2) Pleural effusion associated with hepatic disorder Problem Text: 06/01 - Resp status stable. 05/31 CT chest shows: 1. New moderate sized left lower lobe pleural effusion with compressive atelectasis of the left lower lung. - Continue lasix 40 mg IV Q6H (3) Hyperbilirubinemia Status: Acute Problem Text: 06/01 - T Bili 3.7 today. 05/31 Baseline ~2.2; elevated to 3.5 - Monitor daily (4) Ascites Status: Chronic Response to Treatment: Worse Problem Text: 06/02 -- s/p paracentesis, improved; restarting spironolactone and Lasix Increased over the last 3 weeks per family; due to cirrhosis. - No evidence of SBP with nontender abdomen, afebrile patient, and normal WBCs - Family requesting paracentesis or drain; at this point, as patient is not uncomfortable, I recommended medications to reduce ascites and if it persists, consider GI consult tomorrow (5) Hyperkalemia Onset Date: ~ 05/31/2017 Status: Acute Response to Treatment: Improving Problem Text: Potassium improved with holding spironolactone. I do think he would benefit from spironolactone in terms of ascites - will recheck BMP this afternoon and if potassium is continuing to trend down, will restart spironolactone (6) Hypothyroidism Status: Chronic Problem Text: TSH mildly elevated; in setting of acute illness, will continue home dose of levothyroxine and recheck as an outpatient (7) Autoimmune hepatitis Status: Chronic Response to Treatment: Stable Problem Text: 06/02 -- INR ordered to facilitate caclculating MELD score. Patient's family is very interested in pursuing a liver transplant; I am not sure if Mr. Thompson is a candidate for this. Per family, he is not currently on the transplant list, but they were told that if he worsened, he might be able to get on the transplant list. - Consider contacting his Liver specialist in [place] tomorrow - Continue HD plaquenil and prednisone (8) Esophageal varices in cirrhosis Status: Chronic Response to Treatment: Stable Problem Text: Continue nadolol Plan/VTE VTE Prophylaxis Ordered?: Yes VS, I&O, 24H, Fishbone Vital Signs/I&O Vital Signs Date Time Temp Pulse Resp B/P (MAP) Pulse Ox O2 Delivery O2 Flow Rate FiO2 06/02/17 22:00 98.0 81 20 127/60 (82) 97 Nasal Cannula 2.0 Laboratory Data 24H LABS Laboratory Tests 2 06/02/17 06:05: Nucleated Red Blood Cells % (auto) 0.0, Anion Gap 9, Glomerular Filtration Rate > 60.0, Blood Urea Nitrogen 18, Creatinine 1.16, Sodium Level 142, Potassium Level 3.7, Chloride Level 109H, Carbon Dioxide Level 24, Calcium Level 8.8, Aspartate Amino Transf (AST/SGOT) 61H, Alanine Aminotransferase (ALT/SGPT) 53, Alkaline Phosphatase 132H, Total Bilirubin 3.1H, Total Protein 5.5L, Albumin 2.2L, Albumin/Globulin Ratio 0.67L CBC/BMP Laboratory Tests 06/02/17 06:05 Red Blood Count 3.04 L, Mean Corpuscular Volume 109.9 H, Mean Corpuscular Hemoglobin 37.5 H, Mean Corpuscular Hemoglobin Concent 34.1, Red Cell Distribution Width 15.9 H, Calcium Level 8.8, Aspartate Amino Transf (AST/SGOT) 61 H, Alanine Aminotransferase (ALT/SGPT) 53, Alkaline Phosphatase 132 H, Total Bilirubin 3.1 H, Total Protein 5.5 L, Albumin 2.2 L Microbiology Microbiology 06/01/17 Body Fluid Culture, Received Pending 05/30/17 Urine Culture - Final, Complete JAMES MAST DO Jun 03, 2017 00:25
[2017-06-03] MEDS: LACTULOSE 20 GM/30 ML SYRUP UD PO SCH ×3 (06:00→18:27)
[2017-06-03] MEDS: LEVOTHYROXINE 50MCG TABLET (0.05MG) PO SCH (06:00)
[2017-06-03] MEDS: HEPARIN SOD (PORCINE) 5000 UNITS/ML VIAL SC SCH ×3 (06:00→22:02)
[2017-06-03 06:34] LABS: MEAN CORPUSCULAR HEMOGLOBIN 37.7 pg (27.0-33.0); MEAN CORPUSCULAR HGB CONC 34.9 g/dl (32.0-36.5); MEAN CORPUSCULAR VOLUME 107.9 fl (80.0-96.0); PLATELET COUNT, AUTOMATED 101 10^3/uL (150-450); RED CELL DISTRIBUTION WIDTH 15.6 % (11.5-14.5); WHITE BLOOD COUNT 7.9 10^3/uL (4.0-10.0)
[2017-06-03 06:52] LABS: ALBUMIN 2.2 GM/DL (3.2-5.2); ALBUMIN/GLOBULIN RATIO 0.61 (1.00-1.93); ALKALINE PHOSPHATASE 153 U/L (45-117); ALT/SGPT 57 U/L (12-78); ANION GAP 8 MEQ/L (8-16); AST/SGOT 61 U/L (7-37); BILIRUBIN,TOTAL 3.2 MG/DL (0.2-1.0); BLOOD UREA NITROGEN 14 MG/DL (7-18); CALCIUM LEVEL 8.8 MG/DL (8.8-10.2); CARBON DIOXIDE LEVEL 24 MEQ/L (21-32); CHLORIDE LEVEL 106 MEQ/L (98-107); CREATININE FOR GFR 1.08 MG/DL (0.70-1.30); GLOMERULAR FILTRATION RATE > 60.0 (>49); GLUCOSE, FASTING 114 MG/DL (80-110); POTASSIUM SERUM 3.7 MEQ/L (3.5-5.1); SODIUM LEVEL 138 MEQ/L (136-145); TOTAL PROTEIN 5.8 GM/DL (6.4-8.2)
[2017-06-03 07:03] LABS: INR 1.73
--- NOTE | 2017-06-03 11:09 | IPNPDOC ---
Subjective Date Seen The patient was seen on 06/03/17. Subjective Chief Complaint/HPI The patient is a 66-year-old male admitted with a reason for visit of Hepatic Encephalopathy. Events since last encounter Patient is doing better than yesterday. No acute complaints today. Constitutional: Denies: Chills, Fever, Night Sweats Pulmonary: Denies: Dyspnea Cardiovascular: Denies: Chest Pain Objective Physical Examination General Exam: Positive: Alert, Cooperative, No Acute Distress Chest Exam: Positive: Clear to auscultation, Normal air movement, Negative: Rales, Rhonchi, Wheezing Heart Exam: Positive: Rate Normal, Regular Rhythm, Normal S1, Normal S2, Murmurs (faint murmur throughout percordium ) Abdomen Exam: Positive: Normal bowel sounds, Soft, Negative: Tenderness Extremity Exam: Positive: Edema (pitting bilaterally to level of mid wilkinson) Assessment /Plan Problems (1) Hepatic encephalopathy Status: Acute Response to Treatment: Stable Problem Text: 06/03: Patient had paracentesis and had 4.4L drained. Cultures came back negative for growth. Patient's SAAG was 2.1, which is consistent with portal hypertension. Patient's MELD score is 18 at this time. Patient's lactulose was held today due to more than 4 bowel movements in the last 24 hours. We will recheck ammonia level tomorrow. 06/01 Ammonia down from 150 to 64, MS improved. Plan to have Abd US today with paracentesis and albumin replacement. Dr Plascencia spoke with GI Syr 05/31. 05/31 Likely due to inadequate dose of lactulose at home - Recheck ammonia level in the morning - Continue lactulose 30 ml Q6H - Continue rifixamin (2) Pleural effusion associated with hepatic disorder Problem Text: 06/01 - Resp status stable. 05/31 CT chest shows: 1. New moderate sized left lower lobe pleural effusion with compressive atelectasis of the left lower lung. - Continue lasix 40 mg IV Q6H (3) Hyperbilirubinemia Status: Acute Problem Text: 06/03: Bilirubin today is 3.2. 06/01 - T Bili 3.7 today. 05/31 Baseline ~2.2; elevated to 3.5 - Monitor daily (4) Ascites Status: Chronic Response to Treatment: Worse Problem Text: 06/02 -- s/p paracentesis, improved; restarting spironolactone and Lasix Increased over the last 3 weeks per family; due to cirrhosis. - No evidence of SBP with nontender abdomen, afebrile patient, and normal WBCs - Family requesting paracentesis or drain; at this point, as patient is not uncomfortable, I recommended medications to reduce ascites and if it persists, consider GI consult tomorrow (5) Hyperkalemia Onset Date: ~ 05/31/2017 Status: Acute Response to Treatment: Improving Problem Text: 06/03: Potassium stable today at 3.7. Lasix and Aldactone restarted. Potassium improved with holding spironolactone. I do think he would benefit from spironolactone in terms of ascites - will recheck BMP this afternoon and if potassium is continuing to trend down, will restart spironolactone (6) Hypothyroidism Status: Chronic Problem Text: TSH mildly elevated; in setting of acute illness, will continue home dose of levothyroxine and recheck as an outpatient (7) Autoimmune hepatitis Status: Chronic Response to Treatment: Stable Problem Text: 06/03: See hepatic encephalopathy. 06/02 -- INR ordered to facilitate caclculating MELD score. Patient's family is very interested in pursuing a liver transplant; I am not sure if Mr. Thompson is a candidate for this. Per family, he is not currently on the transplant list, but they were told that if he worsened, he might be able to get on the transplant list. - Consider contacting his Liver specialist in [place] tomorrow - Continue HD plaquenil and prednisone (8) Esophageal varices in cirrhosis Status: Chronic Response to Treatment: Stable Problem Text: Continue nadolol Plan/VTE VTE Prophylaxis Ordered?: Yes Disposition Patient is medically doing well. He can be discharged once cleared by PT. Anticipate discharge within 24-48 hours VS, I&O, 24H, Fishbone Vital Signs/I&O Vital Signs Date Time Temp Pulse Resp B/P (MAP) Pulse Ox O2 Delivery O2 Flow Rate FiO2 06/03/17 10:41 98.4 14 104/58 (73) 06/03/17 10:23 78 94 Nasal Cannula 2.0 Laboratory Data 24H LABS Laboratory Tests 2 06/03/17 06:20: Prothrombin Time 20.8H, Prothromb Time International Ratio 1.73, Anion Gap 8, Glomerular Filtration Rate > 60.0, Blood Urea Nitrogen 14, Creatinine 1.08, Sodium Level 138, Potassium Level 3.7, Chloride Level 106, Carbon Dioxide Level 24, Calcium Level 8.8, Aspartate Amino Transf (AST/SGOT) 61H, Alanine Aminotransferase (ALT/SGPT) 57, Alkaline Phosphatase 153H, Total Bilirubin 3.2H , Total Protein 5.8L, Albumin 2.2L, Albumin/Globulin Ratio 0.61L 06/03/17 06:21: Nucleated Red Blood Cells % (auto) 0.0 CBC/BMP Laboratory Tests 06/03/17 06:20 Calcium Level 8.8, Aspartate Amino Transf (AST/SGOT) 61 H, Alanine Aminotransferase (ALT/SGPT) 57, Alkaline Phosphatase 153 H, Total Bilirubin 3.2 H, Total Protein 5.8 L, Albumin 2.2 L 06/03/17 06:21 Red Blood Count 3.16 L, Mean Corpuscular Volume 107.9 H, Mean Corpuscular Hemoglobin 37.7 H, Mean Corpuscular Hemoglobin Concent 34.9, Red Cell Distribution Width 15.6 H Microbiology Microbiology 06/01/17 Body Fluid Culture - Final, Complete 05/30/17 Urine Culture - Final, Complete GME ATTESTATION GME ATTESTATION My faculty preceptor for this patient encounter was physically present during the encounter and was fully available. All aspects of the patient interview, examination, medical decision making process, and medical care plan development were reviewed and approved by the faculty preceptor. The faculty preceptor is aware and concurs with the plan as stated in the body of this note and will attest to such by his/her cosignature. JELENA NORRIS DO Jun 03, 2017 11:09
[2017-06-03] MEDS: DESLORATADINE 5 MG TAB (CLARINEX) PO SCH (11:12)
[2017-06-03] MEDS: SPIRONOLACTONE 50 MG TAB PO SCH (11:13)
[2017-06-03] MEDS: rifAXIMin 550 MG TAB (XIFAXAN) PO SCH ×2 (11:13→22:01)
[2017-06-03] MEDS: HYDROXYCHLOROQUINE 200 MG TAB PO SCH (11:14)
[2017-06-03] MEDS: predniSONE 5 MG TAB PO SCH (11:14)
[2017-06-03] MEDS: FUROSEMIDE 20 MG TAB PO SCH (11:14)
[2017-06-03] MEDS: OMEPRAZOLE 20 MG CAP PO SCH (11:41)
[2017-06-03] MEDS: NADOLOL 20MG TABLET PO SCH (22:01)
[2017-06-04] VITALS (7 sets, daily range): BP systolic 102–133; BP diastolic 58–70
[2017-06-04] MEDS: LEVOTHYROXINE 50MCG TABLET (0.05MG) PO SCH (06:28)
[2017-06-04] MEDS: LACTULOSE 20 GM/30 ML SYRUP UD PO SCH ×4 (06:29→17:40)
[2017-06-04] MEDS: HEPARIN SOD (PORCINE) 5000 UNITS/ML VIAL SC SCH (06:29)
[2017-06-04 07:35] LABS: MEAN CORPUSCULAR HEMOGLOBIN 37.8 pg (27.0-33.0); MEAN CORPUSCULAR HGB CONC 34.8 g/dl (32.0-36.5); MEAN CORPUSCULAR VOLUME 108.6 fl (80.0-96.0); RED CELL DISTRIBUTION WIDTH 15.4 % (11.5-14.5); WHITE BLOOD COUNT 6.1 10^3/uL (4.0-10.0)
[2017-06-04 07:47] LABS: PLATELET COUNT, AUTOMATED 87 10^3/uL (150-450)
[2017-06-04 07:48] LABS: IMMATURE PLATELET FRACTION % 2.3 % (0.0-10.9)
[2017-06-04 08:11] LABS: ALBUMIN/GLOBULIN RATIO 0.54 (1.00-1.93); ALKALINE PHOSPHATASE 131 U/L (45-117); ALT/SGPT 54 U/L (12-78); ANION GAP 8 MEQ/L (8-16); AST/SGOT 54 U/L (7-37); BILIRUBIN,TOTAL 2.8 MG/DL (0.2-1.0); BLOOD UREA NITROGEN 11 MG/DL (7-18); CALCIUM LEVEL 8.4 MG/DL (8.8-10.2); CARBON DIOXIDE LEVEL 25 MEQ/L (21-32); CHLORIDE LEVEL 105 MEQ/L (98-107); CREATININE FOR GFR 0.89 MG/DL (0.70-1.30); GLOMERULAR FILTRATION RATE > 60.0 (>49); GLUCOSE, FASTING 107 MG/DL (80-110); POTASSIUM SERUM 3.5 MEQ/L (3.5-5.1); SODIUM LEVEL 138 MEQ/L (136-145); TOTAL PROTEIN 5.7 GM/DL (6.4-8.2)
[2017-06-04] MEDS: predniSONE 5 MG TAB PO SCH (09:20)
[2017-06-04] MEDS: rifAXIMin 550 MG TAB (XIFAXAN) PO SCH ×2 (09:20→20:54)
[2017-06-04] MEDS: DESLORATADINE 5 MG TAB (CLARINEX) PO SCH (09:20)
[2017-06-04] MEDS: FUROSEMIDE 20 MG TAB PO SCH (09:20)
[2017-06-04] MEDS: HYDROXYCHLOROQUINE 200 MG TAB PO SCH (09:20)
[2017-06-04] MEDS: SPIRONOLACTONE 50 MG TAB PO SCH (09:20)
[2017-06-04] MEDS: OMEPRAZOLE 20 MG CAP PO SCH (12:35)
--- NOTE | 2017-06-04 16:19 | IPNPDOC ---
Subjective Date Seen The patient was seen on 06/04/17. Subjective Chief Complaint/HPI The patient is a 66-year-old male admitted with a reason for visit of Hepatic Encephalopathy. Events since last encounter Patient's platelets have been dropping. Nursing does not have any other concerns today. Patient does not have any acute concerns today. Constitutional: Denies: Chills, Fever Pulmonary: Denies: Dyspnea Cardiovascular: Denies: Chest Pain Gastrointestinal: Denies: Abdominal Pain Objective Physical Examination General Exam: Positive: Alert, Cooperative, No Acute Distress Chest Exam: Positive: Clear to auscultation, Normal air movement, Negative: Rales, Rhonchi, Wheezing, Diminished Heart Exam: Positive: Rate Normal, Regular Rhythm, Normal S1, Normal S2, Murmurs (faint murmur throughout percordium ), Negative: Gallops, Rubs Abdomen Exam: Positive: Normal bowel sounds, Soft, Negative: Tenderness Extremity Exam: Negative: Edema Assessment /Plan Problems (1) Hepatic encephalopathy Status: Acute Response to Treatment: Stable Problem Text: 06/04: Patient continues to improve, ammonia today of 36. Continue current lactulose dosing 06/03: Patient had paracentesis and had 4.4L drained. Cultures came back negative for growth. Patient's SAAG was 2.1, which is consistent with portal hypertension. Patient's MELD score is 18 at this time. Patient's lactulose was held today due to more than 4 bowel movements in the last 24 hours. We will recheck ammonia level tomorrow. 06/01 Ammonia down from 150 to 64, MS improved. Plan to have Abd US today with paracentesis and albumin replacement. Dr Plascencia spoke with GI Syr 05/31. 05/31 Likely due to inadequate dose of lactulose at home - Recheck ammonia level in the morning - Continue lactulose 30 ml Q6H - Continue rifixamin (2) Thrombocytopenia Problem Text: 06/04: Patient's platelets have been dropping, platelets down to 87 today. Thrombocytopenia likely secondary to liver cirrhosis, however differential diagnosis does include heparin-induced thrombocytopenia. At this time we will discontinue subcutaneous heparin, patient will be placed on TEDs and sequentials for DVT prophylaxis, we will check a heparin antibody. (3) Pleural effusion associated with hepatic disorder Problem Text: 06/01 - Resp status stable. 05/31 CT chest shows: 1. New moderate sized left lower lobe pleural effusion with compressive atelectasis of the left lower lung. - Continue lasix 40 mg IV Q6H (4) Hyperbilirubinemia Status: Acute Problem Text: 06/03: Bilirubin today is 3.2. 06/01 - T Bili 3.7 today. 05/31 Baseline ~2.2; elevated to 3.5 - Monitor daily (5) Ascites Status: Chronic Response to Treatment: Worse Problem Text: 06/02 -- s/p paracentesis, improved; restarting spironolactone and Lasix Increased over the last 3 weeks per family; due to cirrhosis. - No evidence of SBP with nontender abdomen, afebrile patient, and normal WBCs - Family requesting paracentesis or drain; at this point, as patient is not uncomfortable, I recommended medications to reduce ascites and if it persists, consider GI consult tomorrow (6) Hyperkalemia Onset Date: ~ 05/31/2017 Status: Acute Response to Treatment: Improving Problem Text: 06/03: Potassium stable today at 3.7. Lasix and Aldactone restarted. Potassium improved with holding spironolactone. I do think he would benefit from spironolactone in terms of ascites - will recheck BMP this afternoon and if potassium is continuing to trend down, will restart spironolactone (7) Hypothyroidism Status: Chronic Problem Text: TSH mildly elevated; in setting of acute illness, will continue home dose of levothyroxine and recheck as an outpatient (8) Autoimmune hepatitis Status: Chronic Response to Treatment: Stable Problem Text: 06/03: See hepatic encephalopathy. 06/02 -- INR ordered to facilitate caclculating MELD score. Patient's family is very interested in pursuing a liver transplant; I am not sure if Mr. Thompson is a candidate for this. Per family, he is not currently on the transplant list, but they were told that if he worsened, he might be able to get on the transplant list. - Consider contacting his Liver specialist in [place] tomorrow - Continue HD plaquenil and prednisone (9) Esophageal varices in cirrhosis Status: Chronic Response to Treatment: Stable Problem Text: Continue nadolol Plan/VTE VTE Prophylaxis Ordered?: Yes Disposition Patient will be able to be discharged once cleared by physical therapy. VS, I&O, 24H, Fishbone Vital Signs/I&O Vital Signs Date Time Temp Pulse Resp B/P (MAP) Pulse Ox O2 Delivery O2 Flow Rate FiO2 06/04/17 14:00 98.2 87 18 120/60 (80) 99 Nasal Cannula 2.0 I&O- Last 24 Hours up to 6 AM 06/05/17 06:00 Intake Total 240 ml Balance 240 ml Laboratory Data 24H LABS Laboratory Tests 2 06/04/17 07:05: Nucleated Red Blood Cells % (auto) 0.0, Immature Platelet Fraction 2.3, Anion Gap 8, Glomerular Filtration Rate > 60.0, Blood Urea Nitrogen 11, Creatinine 0.89, Sodium Level 138, Potassium Level 3.5, Chloride Level 105, Carbon Dioxide Level 25, Calcium Level 8.4L, Aspartate Amino Transf (AST/SGOT) 54H, Alanine Aminotransferase (ALT/SGPT) 54, Alkaline Phosphatase 131H, Total Bilirubin 2.8H , Total Protein 5.7L, Albumin 2.0L, Ammonia 36H, Albumin/Globulin Ratio 0.54L 06/04/17 14:30: CBC/BMP Laboratory Tests 06/04/17 07:05 Red Blood Count 3.04 L, Mean Corpuscular Volume 108.6 H, Mean Corpuscular Hemoglobin 37.8 H, Mean Corpuscular Hemoglobin Concent 34.8, Red Cell Distribution Width 15.4 H, Calcium Level 8.4 L, Aspartate Amino Transf (AST/SGOT ) 54 H, Alanine Aminotransferase (ALT/SGPT) 54, Alkaline Phosphatase 131 H, Total Bilirubin 2.8 H, Total Protein 5.7 L, Albumin 2.0 L Microbiology Microbiology 06/01/17 Body Fluid Culture - Final, Complete 05/30/17 Urine Culture - Final, Complete GME ATTESTATION GME ATTESTATION My faculty preceptor for this patient encounter was physically present during the encounter and was fully available. All aspects of the patient interview, examination, medical decision making process, and medical care plan development were reviewed and approved by the faculty preceptor. The faculty preceptor is aware and concurs with the plan as stated in the body of this note and will attest to such by his/her cosignature. JELENA NORRIS DO Jun 04, 2017 16:19
[2017-06-04] MEDS: NADOLOL 20MG TABLET PO SCH (20:55)
[2017-06-05] MEDS: LACTULOSE 20 GM/30 ML SYRUP UD PO SCH ×3 (00:20→12:33)
[2017-06-05 02:00] VITALS: BP 105/59
[2017-06-05] MEDS: LEVOTHYROXINE 50MCG TABLET (0.05MG) PO SCH (05:43)
[2017-06-05 06:00] VITALS: BP 118/57
[2017-06-05 06:40] LABS: MEAN CORPUSCULAR HEMOGLOBIN 37.5 pg (27.0-33.0); MEAN CORPUSCULAR HGB CONC 34.6 g/dl (32.0-36.5); MEAN CORPUSCULAR VOLUME 108.4 fl (80.0-96.0); PLATELET COUNT, AUTOMATED 100 10^3/uL (150-450); RED CELL DISTRIBUTION WIDTH 15.2 % (11.5-14.5); WHITE BLOOD COUNT 7.4 10^3/uL (4.0-10.0)
[2017-06-05 06:59] LABS: ALBUMIN 2.2 GM/DL (3.2-5.2); ALBUMIN/GLOBULIN RATIO 0.58 (1.00-1.93); ALKALINE PHOSPHATASE 158 U/L (45-117); ALT/SGPT 61 U/L (12-78); ANION GAP 9 MEQ/L (8-16); AST/SGOT 68 U/L (7-37); BILIRUBIN,TOTAL 2.7 MG/DL (0.2-1.0); BLOOD UREA NITROGEN 10 MG/DL (7-18); CALCIUM LEVEL 8.6 MG/DL (8.8-10.2); CARBON DIOXIDE LEVEL 24 MEQ/L (21-32); CHLORIDE LEVEL 102 MEQ/L (98-107); CREATININE FOR GFR 1.08 MG/DL (0.70-1.30); GLOMERULAR FILTRATION RATE > 60.0 (>49); GLUCOSE, FASTING 112 MG/DL (80-110); POTASSIUM SERUM 3.4 MEQ/L (3.5-5.1); SODIUM LEVEL 135 MEQ/L (136-145)
[2017-06-05] MEDS: DESLORATADINE 5 MG TAB (CLARINEX) PO SCH (09:11)
[2017-06-05] MEDS: rifAXIMin 550 MG TAB (XIFAXAN) PO SCH (09:11)
[2017-06-05] MEDS: SPIRONOLACTONE 50 MG TAB PO SCH (09:11)
[2017-06-05] MEDS: predniSONE 5 MG TAB PO SCH (09:11)
[2017-06-05] MEDS: FUROSEMIDE 20 MG TAB PO SCH (09:11)
[2017-06-05] MEDS: HYDROXYCHLOROQUINE 200 MG TAB PO SCH (09:13)
[2017-06-05 10:00] VITALS: BP 111/70
[2017-06-05] MEDS: OMEPRAZOLE 20 MG CAP PO SCH (12:33)
[2017-06-05] MEDS ORDERED: LACT10SO3 PO (13:05)
[2017-06-05 14:00] VITALS: BP 107/72
--- NOTE | 2017-06-06 16:46 | DSES ---
DATE OF ADMISSION: 05/30/2017 DATE OF DISCHARGE: 06/05/2017 BRIEF HISTORY AND PHYSICAL: Patient is a 66-year-old patient of Dr. Sigala with a history of autoimmune hepatitis and end-stage cirrhosis, who presented with shortness of breath, progressive weakness, decreased appetite, increased fluid in his legs and abdomen, and recent increase in his nasal cannula due to higher oxygen requirements. PAST MEDICAL HISTORY: Is significant for hypertension, autoimmune hepatitis, cirrhosis, gastroesophageal reflux disease, history of varices, hepatic metabolic encephalopathy. PERTINENT LABS ON ADMISSION: Sodium 136, potassium 5.5, BUN 17, creatinine 1.26, glucose 104. Ammonia level was 150. White count 7.4, hemoglobin 13.8, platelets 140,000. IMAGING: Head CT showed stable to slightly reduced appearance of right frontotemporal subdural collection, consistent with subcutaneous chronic subdural hemorrhage. Chest CT showed a moderate-sized left pleural effusion with compressive atelectasis in the left lower lung. Vascular ultrasound showed no deep venous thrombosis (DVT). HOSPITAL COURSE: 1. Patient was admitted for hepatic metabolic encephalopathy secondary to liver cirrhosis from autoimmune hepatitis. Ammonia was elevated at 150. He was given lactulose in the emergency room, and his dose of lactulose was increased to 30 mg every 6 hours. He remains on his rifaximin. His ammonia level had improved to 36, and his mental status has improved as well. 2. Ascites. He underwent a paracentesis on 06/01/2017, from which 4500 mL of clear yellow fluid was withdrawn. Patient tolerated the procedure well. His abdomen is less distended. He is less short of breath. His oxygen requirements are less. He will be discharged on his usual dose of Lasix. Prior to admission, he was on spironolactone 50 mg twice a day, and I will send him home on that dose. 3. Thrombocytopenia. Patient's platelets have been dropping. Platelets had gone down to 87. Heparin was discontinued. On the date of discharge, however, his platelets are 100 and it is felt to like to secondary to his end-stage liver disease. 4. History of varices. He remains Nadolol. 5. Autoimmune hepatitis. He is on Plaquenil, prednisone, rifaximin. 6. Hypothyroidism. He has remained on his usual dose of levothyroxine. His thyroid-stimulating hormone (TSH) was a little elevated at 6.46. Will need this rechecked as an outpatient when he is stable and adjustment in his levothyroxine as indicated. 7. Hypotension. Patient is on midodrine as an outpatient per his liver specialist. His blood pressure tends to fall on his diuretics. However, the midodrine probably contributes to some of his fluid retention. At this point, I am restarting the midodrine but this will need to be followed as an outpatient and further discussions with his liver special as to whether or not he can tolerate this with his tendency to accumulate fluid. DISPOSITION: Stable for discharge home. MEDICATIONS: - lactulose 30 mL every 6 hours - albuterol two puffs four times a day as needed for shortness of breath - Clarinex 5 mg daily - vitamin D 50,000 international units weekly - furosemide 20 mg daily - hydroxychloroquine 200 mg daily - levothyroxine 50 mcg daily - midodrine 7.5 mg three times a day - nadolol 20 mg at bedtime - omeprazole 20 mg daily - prednisone 5 mg daily - rifaximin 550 mg twice a day - spironolactone 50 mg twice a day - zinc 50 mg at bedtime - oxygen 2 liters nasal cannula DISCHARGE DIAGNOSES: 1. Hepatic encephalopathy. 2. Pleural effusion secondary to hepatic disorder with hypoxemia. 3. Ascites secondary to liver cirrhosis. 4. Thrombocytopenia. 5. Hyperkalemia. 6. Autoimmune hepatitis. 7. End-stage cirrhosis. 8. Hypothyroidism. 9. Esophageal varices. ADDENDUM: There was a CT of the head on admission that showed a stable to slightly reduced appearance of a right frontotemporal subdural collection, consistent with a subacute or chronic subdural hemorrhage with no acute findings. This was not mentioned during the hospitalization. The previous hospital CT that it is compared to was from 04/19/2017, which was described as a hygroma at that point. Since the subdural has improved and his mental status has improved, there is no further treatment necessary at this time. He does have thrombocytopenia, but his platelets have never really been low enough for a spontaneous bleed. I am not sure if he has fallen in the past, but at this point, since the subdural seems to have gotten smaller, I have not done anything different with him. Addendum Dictated: RANGEL 06/05/2017 [id number] Addendum Transcribed: chelsy 06/06/2017 [id number]
== END 2017-06-05 14:54 | disposition home health service (06) | DRG 432 ==
LOC: M ED 17:44 → M ED INP 20:23 → M MSPAV 22:43
PROVIDERS: ADMIT Internal Medicine; ATTEND Family Medicine
PROC: 0W9F3ZZ Drainage of Abdominal Wall, Percutaneous Approach (ICD-10-PCS; principal; 2017-06-01)
DX: K74.60 Unspecified cirrhosis of liver (principal); K72.00 Acute and subacute hepatic failure without coma; J91.8 Pleural effusion in other conditions classified elsewhere; R18.8 Other ascites; I85.10 Secondary esophageal varices without bleeding; K75.4 Autoimmune hepatitis; E80.6 Other disorders of bilirubin metabolism; E87.5 Hyperkalemia; D69.6 Thrombocytopenia, unspecified; I10 Essential (primary) hypertension; K21.9 Gastro-esophageal reflux disease without esophagitis; J30.9 Allergic rhinitis, unspecified; F17.210 Nicotine dependence, cigarettes, uncomplicated; E03.9 Hypothyroidism, unspecified; Z79.899 Other long term (current) drug therapy

== ENCOUNTER → 2017-06-24 | Outpatient (REF) | payer MEDICARE, OTHER ==
[~2017-06-24] MED LIST changes: +CLAR5TAB PO; +ZINC100T2 PO; +ZINC50TA PO
[2017-06-24 17:20] LABS: ALBUMIN 2.3 GM/DL (3.2-5.2); ALBUMIN/GLOBULIN RATIO 0.52 (1.00-1.93); CALCIUM LEVEL 9.1 MG/DL (8.8-10.2); CREATININE FOR GFR 1.4 MG/DL (0.70-1.30); GLOMERULAR FILTRATION RATE 53.7 (>49); TOTAL PROTEIN 6.7 GM/DL (6.4-8.2)
[2017-06-24 17:25] LABS: POTASSIUM SERUM 5.4 MEQ/L (3.5-5.1)
== END ==
LOC: M SFHCCLAY 13:51
PROVIDERS: ATTEND Family Medicine
DX: K74.60 Unspecified cirrhosis of liver (principal)